=== PATIENT | female | born 1965 | race African-American/Black ===

== ENCOUNTER 2016-06-04 22:02 | Emergency (ER) | payer SELFPAY ==
[~2016-06-04] VITALS: Ht 162.6 cm; Wt 73.5 kg
[~2016-06-04 22:02] MED LIST: ALBI50PE SQ; BUPR75TA5 PO; DOXY100T PO; INSU100C SQ; L.AC1CAP6 PO; NAPR1TAB21 PO; ONDA8TAB12 PO; RAMI5CAP PO; [UNRECOGNIZED DRUG - OTHER] SQ
[2016-06-04 22:05] VITALS: BP 143/96
[2016-06-04] MEDS ORDERED: 0.9 % SODIUM CHLORIDE 10 ML DISP.SYRIN. IV PRN (22:45)
[2016-06-04] MEDS ORDERED: MORPHINE SULFATE 2 MG/ML DISP.SYRIN. IV/SQ PRN (22:45)
[2016-06-04] MEDS ORDERED: ASPIRIN 325 MG TABLET PO ONE (22:45)
--- NOTE | 2016-06-04 22:53 | PHYS DOC ---
General Chief Complaint: DIZZY/LIGHT HEADED Stated Complaint: DIZZY,PAIN IN LUNGS Time Seen by MD: 22:08 Source: patient Exam Limitations: no limitations Problems: History of Present Illness Initial Comments H and is a pleasant 50-year-old female with a history of hypertension, hyperlipidemia, diabetes with a significant smoking history presents with chest pain intermittent for last several days. This episode began at 6:30 tonight prior to arrival patient was noting increased shortness of breath with exertion and noted tightness across her chest worse with breathing in. She believes that this is her bronchitis as her chest pain waxes and wanes and will resolve she continues to smoke despite being encouraged to stop. She denies any recent travel she does have some chronic lower leg pain associated which with what she believes is osteoarthritis employed living by herself. She denies any localized swelling to the lower legs denies any control or history of pulmonary emboli and has no other risk factors for venous thrombosis Timing/Duration: 4-6 hours, changing over time, intermittent Severity/Quality: moderate Location: central Radiation: other (right left flanks) Activities at Onset: activity, other (pain may strike at rest as well and with movements.) Modifying Factors: No antacids, breathing coughingNo defecating, No eating, No exercise, No lying down, No morphine, movementNo nitroglycerin, No oxygen, No palpation, restNo other Nitro Today/Relief: no nitro taken today Aspirin Today: no aspirin today Associated Symptoms: abdominal pain, dizziness, fatigue, weakness Allergies: Coded Allergies: tramadol (Verified Allergy, Intermediate, RASH, NAUSEA/VOMITING, 02/05/15) Past Medical History Medical History: COPD, diabetes, high cholesterol, hypertension Surgical History: cholecystectomy, other ( 2, total abdominal hysterectomy) Social History Smoker: cigarettes, greater than 1 pack/day Alcohol: none Drugs: none Constitutional: weakness other EENTM: no symptoms reported (dizziness) Respiratory: cough shortness of breath SOB with exertion Cardiovascular: chest pain Gastrointestinal: abdomen distendeddenies nausea, denies poor appetite, denies poor fluid intake Genitourinary: no symptoms reported Musculoskeletal: muscle pain Skin: no symptoms reported Psychiatric/Neurological: no symptoms reported Endocrine: no symptoms reported Hematologic/Lymphatic: no symptoms reported All Other Systems: Reviewed and Negative Physical Exam General Appearance: mild distress HEENT: normal ENT inspection, pharynx normal (oropharynx dry) Neck: non-tender Respiratory: chest non-tender, no accessory muscle use, decreased breath sounds Cardiovascular: normal peripheral pulses, regular rate, rhythm, no edema, no gallop, no JVD, no murmur Peripheral Pulses: 2+ carotid (R), 2+ carotid (L) Gastrointestinal: normal bowel sounds, non tender, soft Extremities: normal range of motion, normal inspection, no calf tenderness, normal capillary refill Neurologic/Psychiatric: normal mood/affect, oriented x 3 Skin: normal color Lymphatic: no adenopathy Orders, Labs, [facility] Laboratory Tests 06/04/16 22:13: Glucose (Fingerstick) 353 06/04/16 23:30: White Blood Count 10.2, Red Blood Count 4.72, Hemoglobin 14.2, Hematocrit 42.0, Mean Corpuscular Volume 89, Mean Corpuscular Hemoglobin 30, Mean Corpuscular Hemoglobin Concent 34, Red Cell Distribution Width 13.9, Platelet Count 254, Neutrophils (%) (Auto) 52, Lymphocytes (%) (Auto) 39, Monocytes (%) (Auto) 6, Eosinophils (%) (Auto) 2, Basophils (%) (Auto) 1, Neutrophils # (Auto) 5.3, Lymphocytes # (Auto) 3.9, Monocytes # (Auto) 0.6, Eosinophils # (Auto) 0.2, Basophils # (Auto) 0.1, D-Dimer (Leigh) 0.48, Sodium Level 138, Potassium Level 3.6, Chloride Level 102, Carbon Dioxide Level 27, Anion Gap 9, Blood Urea Nitrogen 12, Creatinine 1.1, Estimated GFR (Cockcroft-Gault) 63.6, BUN/ Creatinine Ratio 11, Glucose Level 319, Calcium Level 8.9, Magnesium Level 2.0, Total Bilirubin 0.3, Aspartate Amino Transf (AST/SGOT) 10, Alanine Aminotransferase (ALT/SGPT) 22, Alkaline Phosphatase 67, Creatine Kinase 160, Creatine Kinase MB (Mass) 0.5, Creatine Kinase MB Relative Index 0.3, Troponin I Quantitative < 0.017, Total Protein 7.4, Albumin 3.4, Albumin/Globulin Ratio 0.9, Lipase 208 Vital Sign - Last 24 Hours 06/04/16 22:05 Temp 98.2 Pulse 92 Resp 20 Pulse Ox 98 O2 Delivery Room Air Patient presents with a concerning history of shortness of breath and chest pain with radiation to the flanks that she's never had quite like this before. She is a diabetic poorly controlled hypertension she still smokes she lives by herself and she is in a state of debility given her body habitus. It is concerning that she might have a cardiac cause of her chest discomfort along with possible co-diagnoses of bronchitis versus COPD exacerbation. At this point I will order EKG, chest x-ray, appropriate cardiac workup here in her heart score is presently is at a 4 which put her moderate risk. She has no PE risk factors other than mild immobility secondary to decreased activity. I will complete a d-dimer at this time. She does not meet perc given her age. Patient' s first reexamination at approximately 11:00 PM patient is feeling markedly better with medications is resting comfortable waiting for laboratory work. We discussed possible need for admission or CT imaging of the chest of her d-dimer came back positive she is low risk for PE but a positive d-dimer would require me to do more definitive evaluation. The patient is admittedly reluctant to be admitted to the hospital secondary to cost. EKG timed 11:35 PM demonstrates normal sinus rhythm with a heart rate of 93 no T wave inversions or ST elevation consistent with acute coronary event. Patient has an otherwise normal EKG. Normal limits. [place] is normal Chest x-ray reviewed by me time. [id number] 04, 2016 demonstrates hyperinflated lungs with no evidence of acute infiltrate cardiac shadow is within normal limits no pleural effusions noted no pneumothorax noted no significant bony abnormalities noted on exam.Since [id number] co-soap given her normal anion gap and her CMP within normal limits. Troponin is negative, d-dimer is negative below 0.5 patient is now symptom-free on secondary examination at approximately 1204. She now discussed outpatient evaluation for cardiology. She is not happy with her primary care doctor side given her referral list which will help her establish a new relationship with a new doctor. Her blood pressure is elevated but not requiring IV intervention. It is chronic in nature. Her chemistries again are within normal limits with the exception of a [id number] glucose which is elevated below 350 she does not know should any signs of DKA or significant hypoglycemia requiring IV therapy. His point patient will be treated as a bronchitis with pleurisy given a course of anti-inflammatories, Lortab and azithromycin. There is no clear evidence of acute coronary injury today but this is not mean she does not have heart disease. Given her risk factors I would advise her to get very close follow-up and exercise treadmill or stress test at her earliest convenience within the next week or 2. She's been given precautions and asked to return for any new symptoms increasing symptoms or questions or concerns. PATRICIA MONTES MD Jun 04, 2016 22:53
--- NOTE | 2016-06-04 23:36 | EKG ---
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
[2016-06-04 23:43] LABS: BASO # 0.1 x10^3/uL (0.0-0.2); BASO % 1 % (0-3); EOS # 0.2 x10^3/uL (0.0-0.7); EOS % 2 % (0-3); HEMOGLOBIN 14.2 g/dL (12.0-15.5); LYMPH # 3.9 x10^3/uL (1.0-4.8); LYMPH % 39 % (24-48); MEAN CORPUSCULAR HEMOGLOBIN 30 pg (25-35); MEAN CORPUSCULAR HGB CONC 34 g/dL (31-37); MEAN CORPUSCULAR VOLUME 89 fL (79-100); MONO # 0.6 x10^3/uL (0.0-1.1); MONO % 6 % (0-9); NEUT # 5.3 x10^3uL (1.8-7.7); NEUT % 52 % (31-73); PLATELET COUNT 254 x10^3/uL (140-400); RED BLOOD COUNT 4.72 x10^6/uL (3.50-5.40); RED CELL DISTRIBUTION WIDTH 13.9 % (11.5-14.5); WHITE BLOOD COUNT 10.2 x10^3/uL (4.0-11.0)
[2016-06-05 00:05] LABS: ALBUMIN 3.4 g/dL (3.4-5.0); ALBUMIN/GLOBULIN RATIO 0.9 (1.0-1.7); CALCIUM 8.9 mg/dL (8.5-10.1); CREATININE 1.1 mg/dL (0.6-1.0); GFR 63.6; POTASSIUM 3.6 mmol/L (3.5-5.1); TOTAL BILIRUBIN 0.3 mg/dL (0.2-1.0); TOTAL PROTEIN 7.4 g/dL (6.4-8.2)
--- NOTE | 2016-06-05 07:15 | RAD ---
Exam: PA and lateral chest radiograph History: Midsternal chest pain x3 days. Comparison: 11/17/2015. Findings: Cardiomediastinal silhouette is within normal limits for size. Bilateral lung brock are free of focal infiltrate. No pleural effusion is seen. Impression: No acute cardiopulmonary process.
== END 2016-06-05 00:30 | disposition home or self-care (01) ==
LOC: ER 22:02
DX: J40 Bronchitis, not specified as acute or chronic (principal); R09.1 Pleurisy; G89.29 Other chronic pain; E11.9 Type 2 diabetes mellitus without complications; E78.00 Pure hypercholesterolemia, unspecified; F17.210 Nicotine dependence, cigarettes, uncomplicated; I10 Essential (primary) hypertension; J44.9 Chronic obstructive pulmonary disease, unspecified; Z88.6 Allergy status to analgesic agent
CPT/HCPCS: 36415; 71020; 80053; 82553; 82947; 83690; 83735; 84484; 85027; 85379; 93005; 96374; 99285; J2270

== ENCOUNTER 2016-06-11 20:07 | Emergency (ER) | payer SELFPAY ==
[~2016-06-11] VITALS: Ht 162.6 cm; Wt 73.5 kg
[2016-06-11] MEDS ORDERED: IV NORMAL SALINE 1,000ML 1,000 ML IV SCH (20:19)
[2016-06-11] MEDS ORDERED: ASPIRIN 81 MG TAB.CHEW PO ONE (20:45)
[2016-06-11 21:26] LABS: BASO % 0 % (0-3); EOS # 0.2 x10^3/uL (0.0-0.7); EOS % 2 % (0-3); HEMATOCRIT 47.1 % (36.0-47.0); HEMOGLOBIN 15.8 g/dL (12.0-15.5); LYMPH # 4.1 x10^3/uL (1.0-4.8); LYMPH % 40 % (24-48); MEAN CORPUSCULAR HEMOGLOBIN 30 pg (25-35); MEAN CORPUSCULAR HGB CONC 34 g/dL (31-37); MEAN CORPUSCULAR VOLUME 90 fL (79-100); MONO # 0.5 x10^3/uL (0.0-1.1); MONO % 5 % (0-9); NEUT # 5.5 x10^3uL (1.8-7.7); NEUT % 53 % (31-73); PLATELET COUNT 245 x10^3/uL (140-400); RED BLOOD COUNT 5.22 x10^6/uL (3.50-5.40); RED CELL DISTRIBUTION WIDTH 14.2 % (11.5-14.5); WHITE BLOOD COUNT 10.3 x10^3/uL (4.0-11.0)
[2016-06-11 21:43] LABS: AMPHETAMINE/METHAMPHETAMINE NEG (NEG); BARBITURATES NEG (NEG); BENZODIAZEPINES NEG (NEG); CANNABINOIDS NEG (NEG); COCAINE NEG (NEG); METHADONE NEG (NEG); OPIATES NEG (NEG); PHENCYCLIDINE NEG (NEG)
[2016-06-11 21:46] LABS: BILIRUBIN,URINE NEG (NEG); CLARITY,URINE CLEAR; COLOR,URINE YELLOW; GLUCOSE,URINE 500 mg/dL (NEG); NITRITE,URINE NEG (NEG); UROBILINOGEN,URINE 0.2 mg/dL (0.2 mg/dL)
[2016-06-11 21:47] LABS: BACTERIA,URINE FEW /HPF (0-FEW); RBC,URINE 0 /HPF (0-2); SQUAMOUS EPITHELIAL CELL,UR OCC /LPF; WBC,URINE OCC /HPF (0-4)
[2016-06-11 21:51] LABS: ALBUMIN 4.1 g/dL (3.4-5.0); ALBUMIN/GLOBULIN RATIO 0.8 (1.0-1.7); ALK PHOS 82 U/L (46-116); ALT (SGPT) 28 U/L (14-59); ANION GAP 12 (6-14); AST (SGOT) 14 U/L (15-37); BLOOD UREA NITROGEN 10 mg/dL (7-20); BUN/CREATININE RATIO 13 (6-20); CALCIUM 9.9 mg/dL (8.5-10.1); CARBON DIOXIDE 28 mmol/L (21-32); CHLORIDE 98 mmol/L (98-107); CREATINE KINASE 171 U/L (26-192); CREATININE 0.8 mg/dL (0.6-1.0); GFR 91.9; GLUCOSE 269 mg/dL (70-99); LIPASE 169 U/L (73-393); MAGNESIUM 2.1 mg/dL (1.8-2.4); POTASSIUM 3.1 mmol/L (3.5-5.1); SODIUM 138 mmol/L (136-145); TOTAL BILIRUBIN 0.5 mg/dL (0.2-1.0)
--- NOTE | 2016-06-11 22:30 | PHYS DOC ---
General Chief Complaint: HYPERGLYCEMIA Stated Complaint: SUGAR HIGH,BODY ACHES Time Seen by MD: 20:10 Source: patient, old records Exam Limitations: no limitations Problems: History of Present Illness Initial Comments Pt is 50/F to ED c/o above complaints x 1 day. States she awoke this morning with a mild global CLAY no neurodeficits, she's felt fatigued and drained all day. She's had some mild abdominal discomfort, states she has chronic diarrhea no n/v no blood in stools. States it feels hard to take a deep breath, but denies cp/sob/palpitations/toscano. Timing/Duration: other (all day) Severity: moderate Modifying Factors: worse with movement, improves with rest Associated Symptoms: headaches, malaise, weakness Allergies: Coded Allergies: tramadol (Verified Allergy, Intermediate, RASH, NAUSEA/VOMITING, 02/05/15) Past Medical History Medical History: COPD, diabetes, high cholesterol, hypertension, other Surgical History: cholecystectomy, other (CS x 2, [facility]) Social History Smoker: less than 1 pack/day Alcohol: none Drugs: none Review of Systems Constitutional: denies chills, denies diaphoresis, denies fever, malaise weakness Respiratory: denies cough, denies shortness of breath, denies wheezing Cardiovascular: denies chest pain, denies palpitations, denies syncope Gastrointestinal: abdominal paindenies constipation, diarrheadenies nausea, denies vomiting Genitourinary: denies frequency, denies hematuria Musculoskeletal: see HPI Psychiatric/Neurological: see HPIdenies paresthesia, denies seizure, denies weakness Physical Exam General Appearance: WD/WN, no apparent distress Eyes: bilateral eye EOMI, bilateral eye PERRL, bilateral eye normal inspection Ear, Nose, Throat: hearing grossly normal, normal ENT inspection, normal pharynx Neck: non-tender, supple Respiratory: normal breath sounds, no respiratory distress Cardiovascular: normal peripheral pulses, regular rate, rhythm Gastrointestinal: normal bowel sounds, non tender, soft Back: no CVA tenderness, no vertebral tenderness Extremities: non-tender, normal inspection Neurologic/Psychiatric: residential treatment staff II-XII nml as tested, no motor/sensory deficits, alert, normal mood/affect, oriented x 3 Skin: normal color, warm/dry Orders, Labs, Meds EKG: NSR 89 bpm, no STEMI or definitive acute ischemic changes PCXR: no acute cardiopulmonary process, interpreted by me. d-dimer 0.53, K+ 3.1, glu 269, Trop I < 0.017, UA 500 glu Klor con given in ED. I discussed d-dimer as screen, pt has no s/s PE and pt is in agreement no CTA evaluation. Discussed K+ replacement and recheck with her doctor, she expressed agreement/understanding of treatment plan. Departure Time of Disposition: 22:23 Disposition: 01 HOME, SELF-CARE Diagnosis: hypokalemia, DM uncontrolled Condition: GOOD Patient Instructions: Diabetes and Standards of Medical Care, Hypokalemia-Brief Additional Instructions: Rest, no strenuous activity. Aggressive hydration with gatorade, water. Increase dietary potassium: leafy green vegetables, yogurt, potatoes, bananas. Rx: klor-con 20meq #12 Continue current medications. Follow up with your doctor Thursday for recheck of symptoms and serum potassium. Return to ED with new or changing symptoms. AHMET AZEVEDO DO June 11, 2016 22:30
[2016-06-11 22:40] VITALS: BP 148/92
[2016-06-11] MEDS ORDERED: POTASSIUM CHLORIDE 20 MEQ TABLET.ER. PO ONE (22:45)
--- NOTE | 2016-06-11 23:16 | EKG ---
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
--- NOTE | 2016-06-12 08:09 | RAD ---
Portable chest, 06/11/2016: History: Chest pain, shortness of breath Comparison is made to a study from 06/04/2016. The heart is at the upper limits of normal in size. The pulmonary vascularity is normal. No pulmonary infiltrates are seen. There is no evidence of pleural fluid. Moderate spurring is present in the spine. IMPRESSION: 1. Borderline cardiomegaly. 2. No acute abnormality is detected.
== END 2016-06-11 22:40 | disposition home or self-care (01) ==
LOC: ER 20:07
DX: E87.6 Hypokalemia (principal); E11.9 Type 2 diabetes mellitus without complications; K52.9 Noninfective gastroenteritis and colitis, unspecified; R51 Headache; F17.210 Nicotine dependence, cigarettes, uncomplicated; J44.9 Chronic obstructive pulmonary disease, unspecified; E78.00 Pure hypercholesterolemia, unspecified; I10 Essential (primary) hypertension; Z90.49 Acquired absence of other specified parts of digestive tract; Z88.5 Allergy status to narcotic agent
CPT/HCPCS: 36415; 71010; 80053; 80305; 80320; 81001; 82553; 82947; 83690; 83735; 83880; 84484; 85027; 85379; 85610; 85730; 93005; G0481; 99285-25; J7030

== ENCOUNTER 2016-06-17 05:51 | Observation (INO) | payer SELFPAY ==
[~2016-06-17] VITALS: Ht 162.6 cm; Wt 69.5 kg
[2016-06-17 06:25] LABS: BASO # 0.1 x10^3/uL (0.0-0.2); BASO % 1 % (0-3); EOS # 0.2 x10^3/uL (0.0-0.7); EOS % 3 % (0-3); HEMATOCRIT 40.1 % (36.0-47.0); HEMOGLOBIN 13.5 g/dL (12.0-15.5); LYMPH # 4.4 x10^3/uL (1.0-4.8); LYMPH % 46 % (24-48); MEAN CORPUSCULAR HEMOGLOBIN 30 pg (25-35); MEAN CORPUSCULAR HGB CONC 34 g/dL (31-37); MEAN CORPUSCULAR VOLUME 89 fL (79-100); MONO # 0.7 x10^3/uL (0.0-1.1); MONO % 7 % (0-9); NEUT # 4.3 x10^3uL (1.8-7.7); NEUT % 44 % (31-73); PLATELET COUNT 237 x10^3/uL (140-400); RED BLOOD COUNT 4.51 x10^6/uL (3.50-5.40); RED CELL DISTRIBUTION WIDTH 13.8 % (11.5-14.5); WHITE BLOOD COUNT 9.7 x10^3/uL (4.0-11.0)
[2016-06-17] MEDS ORDERED: IV NORMAL SALINE 1,000ML 1,000 ML IV SCH (06:30)
[2016-06-17 06:37] LABS: PREG TEST PT QUAL NEGATIVE (NEG)
[2016-06-17 06:46] LABS: ALBUMIN 3.1 g/dL (3.4-5.0); CALCIUM 8.6 mg/dL (8.5-10.1); CREATININE 0.8 mg/dL (0.6-1.0); DIRECT BILIRUBIN 0.1 mg/dL (0.0-0.2); GFR 91.9; POTASSIUM 3.6 mmol/L (3.5-5.1); TOTAL BILIRUBIN 0.4 mg/dL (0.2-1.0)
--- NOTE | 2016-06-17 06:50 | PHYS DOC ---
Past History Past Medical History: COPD, Diabetes, High Cholesterol, Hypertension, UTI, Other Past Surgical History: Cholecystectomy, , Hysterectomy, Tonsillectomy Alcohol Use: None Drug Use: None Adult General Chief Complaint Chief Complaint: CHEST PAIN HPI HPI 50-year-old female presenting to the emergency department today with chest pain. She describes it as sharp pain worse with deep inspiration. It started at 9 PM yesterday. It is intermittent and not associated with nausea vomiting or diaphoresis. She has a history of high blood pressure diabetes she has a smoking history. She reports a family history of heart disease. She also reports having high cholesterol. She reports a family history of blood clotting disorders but denies a personal history of blood clots. She denies recent immobilization or recent surgery hemoptysis or unilateral leg swelling. The pain was not sudden in onset. She denies it being a ripping or tearing pain. It does not radiate to the back. It does however radiate to her left shoulder. She denies numbness weakness or tingling. Review of systems is negative for abdominal pain nausea vomiting fevers or chills. All other review of systems is negative unless otherwise noted in history of present illness. Review of Systems Review of Systems SEE ABOVE. Current Medications Current Medications Current Medications Medications (Trade) Dose Ordered Sig/Deysi Start Time Stop Time Status Last Admin Dose Admin Sodium Chloride 1,000 ml @ 1,000 mls/hr Q1H 06/17/16 06:30 06/17/16 07:29 06/17/16 06:30 1,000 MLS/HR Allergies Allergies Allergies Coded Allergies Type Severity Reaction Last Updated Verified tramadol Allergy Intermediate RASH, NAUSEA/VOMITING 02/05/15 Yes Physical Exam Physical Exam Constitutional: Well developed, well nourished, no acute distress, non-toxic appearance. HENT: Normocephalic, atraumatic, bilateral external ears normal, oropharynx moist, no oral exudates, nose normal. [] Eyes: PERRLA, EOMI, conjunctiva normal, no discharge. Neck: Normal range of motion, no tenderness, supple, no stridor. [] Cardiovascular:Heart rate regular rhythm, no murmur [] Lungs & Thorax: Bilateral breath sounds clear to auscultation Abdomen: Bowel sounds normal, soft, no tenderness, no masses, no pulsatile masses. [] Skin: Warm, dry, no erythema, no rash. [] Back: No tenderness, no CVA tenderness. Extremities: No tenderness, no cyanosis, no clubbing, ROM intact, no edema. Neurologic: Alert and oriented X 3, normal motor function, normal sensory function, no focal deficits noted. [] Psychologic: Affect normal, judgement normal, mood normal. [] Current Patient Data Lab Results Laboratory Tests Test 06/17/16 06:00 White Blood Count 9.7 x10^3/uL (4.0-11.0) Red Blood Count 4.51 x10^6/uL (3.50-5.40) Hemoglobin 13.5 g/dL (12.0-15.5) Hematocrit 40.1 % (36.0-47.0) Mean Corpuscular Volume 89 fL (79-100) Mean Corpuscular Hemoglobin 30 pg (25-35) Mean Corpuscular Hemoglobin Concent 34 g/dL (31-37) Red Cell Distribution Width 13.8 % (11.5-14.5) Platelet Count 237 x10^3/uL (140-400) Neutrophils (%) (Auto) 44 % (31-73) Lymphocytes (%) (Auto) 46 % (24-48) Monocytes (%) (Auto) 7 % (0-9) Eosinophils (%) (Auto) 3 % (0-3) Basophils (%) (Auto) 1 % (0-3) Neutrophils # (Auto) 4.3 x10^3uL (1.8-7.7) Lymphocytes # (Auto) 4.4 x10^3/uL (1.0-4.8) Monocytes # (Auto) 0.7 x10^3/uL (0.0-1.1) Eosinophils # (Auto) 0.2 x10^3/uL (0.0-0.7) Basophils # (Auto) 0.1 x10^3/uL (0.0-0.2) Serum Test, Qualitative Negative (NEG) EKG EKG [] EKG shows sinus rhythm with a regular rhythm. [place] is mildly leftward. ST segments are congruent. Not suggestive of ischemia or ACS. Radiology/Procedures Radiology/Procedures [] Course & Med Decision Making Course & Med Decision Making Pertinent Labs and Imaging studies reviewed. (See chart for details) [] 50-year-old female presenting to the emergency department with chest pain. Vital signs show that the patient was normal oxygen saturation and not tachycardic in our emergency department. EKG unremarkable and not suggestive of ACS. Chest x-ray obtained. Blood work obtained. CT angiography of the chest obtained. Troponin negative. The patient's potassium was at the lower end of normal range she was supplemented a small dose of oral potassium in the emergency department. The patient was then admitted to our hospital for further evaluation workup and care. Cardiology consultation placed. HEART SCORE OF 4. ANNIKA OF 2-3. Dragon Disclaimer Dragon Disclaimer This chart was dictated in whole or in part using Voice Recognition software in a busy, high-work load, and often noisy Emergency Department environment. It may contain unintended and wholly unrecognized errors or omissions. Departure Departure: Impression: Primary Impression: Chest pain Additional Impressions: Diabetes mellitus Hypertension Family history of heart disease Family history of blood clots Disposition: ADMITTED INPATIENT Admitting Physician: Sesar Downey Condition: STABLE Referrals: SEAN POWELL DO (PCP) Problem Qualifiers Primary Impression: Chest pain Chest pain type: unspecified Qualified Codes: R07.9 - Chest pain, unspecified ML GONZALES MD June 17, 2016 06:50
[2016-06-17 06:54] LABS: BACTERIA,URINE 0 /HPF (0-FEW); BILIRUBIN,URINE NEG (NEG); CLARITY,URINE CLEAR; COLOR,URINE YELLOW; GLUCOSE,URINE >=1000 mg/dL (NEG); NITRITE,URINE NEG (NEG); RBC,URINE OCC /HPF (0-2); SQUAMOUS EPITHELIAL CELL,UR OCC /LPF; UROBILINOGEN,URINE 4 mg/dL (0.2 mg/dL); WBC,URINE 0 /HPF (0-4)
[2016-06-17] MEDS ORDERED: IOHEXOL 300 MG/ML 75 ML VIAL. ONE (06:54)
--- NOTE | 2016-06-17 06:58 | RAD ---
Indication: Chest pain and shortness of air. Time of exam 0627 hours. Correlation is made with prior chest from 06/11/2016. The heart is mildly enlarged. The lungs are clear. The pulmonary vascularity is normal. No infiltrate, effusion or pneumothorax is identified. Impression: No acute cardiopulmonary process is detected.
[2016-06-17] MEDS ORDERED: CONTRAST GIVEN MC PRN (07:00)
[2016-06-17] MEDS ORDERED: NITROGLYCERIN SUBLINGUAL 0.4 MG BOTTLE OF 25. SL PRN (07:00)
[2016-06-17] MEDS ORDERED: ONDANSETRON PF 4 MG/2 ML VIAL. IV PRN (07:00)
[2016-06-17 07:02] LABS: AMPHETAMINE/METHAMPHETAMINE NEG (NEG); BARBITURATES NEG (NEG); BENZODIAZEPINES NEG (NEG); CANNABINOIDS NEG (NEG); COCAINE NEG (NEG); METHADONE NEG (NEG); OPIATES NEG (NEG); PHENCYCLIDINE NEG (NEG)
[2016-06-17] MEDS ORDERED: IOHEXOL 300 MG/ML 75 ML VIAL. IV ONE (07:15)
[2016-06-17] MEDS ORDERED: POTASSIUM CHLORIDE 20 MEQ TABLET.ER. PO ONE (07:30)
--- NOTE | 2016-06-17 07:34 | ACF ---
Admission Criteria Forms Admission Criteria Met?: No EBONIE SHARMA June 17, 2016 07:34 ML GONZALES MD June 22, 2016 18:28
--- NOTE | 2016-06-17 07:35 | RAD ---
Indication: Chest pain for one week and shortness of air. Axial imaging through the chest was performed after the administration of intravenous contrast and utilizing the CT angiography protocol. Multiplanar, 3-D and MIP reformations were also performed. Comparison is made with prior chest from 10/03/2014. Evaluation of the pulmonary arterial system is without evidence of thromboembolism. No filling defects are identified. The thoracic aorta is normal caliber. No dissection is seen. No pericardial or pleural fluid is identified. Parenchymal evaluation demonstrates minimal patchy groundglass opacities within the left upper lobe. There is dependent atelectasis in the lung bases. Upper abdomen is unremarkable apart from a probable cyst within the right lobe of the liver. Impression: 1. No evidence of pulmonary embolism or thoracic aortic dissection. Minimal nonspecific groundglass opacities left upper lobe are seen. Study is otherwise unremarkable. PQRS Compliance Statement: One or more of the following individualized dose reduction techniques were utilized for this examination: 1. Automated exposure control 2. Adjustment of the mA and/or kV according to patient size 3. Use of iterative reconstruction technique
[2016-06-17 08:26] VITALS: BP 130/72
--- NOTE | 2016-06-17 08:38 | PDOC2 ---
FABIANA MCGRAW PROFESSOR OF PHILOSOPHY 06/17/16 0838: CONSULT Date of Admission DATE: 06/17/16 TIME: 08:37 Reason for Consult: cp Problem List Problems Medical Problems: (1) Chest pain Status: Acute (2) Diabetes mellitus Status: Acute (3) Hypertension Status: Acute History of Present Illness Ms Feliciano is a 50 year old female with history of diabetes mellitus, hypertension and hyperlipidemia, who presents with complaints of chest pain. She reports pain starting about 9 pm last night. She took aspirin and tried to sleep off the discomfort and when that did not work, presented to the ED this am. She describes a sharp pain in her mid sternal area, worse with deep inspiration, movement of her upper body and eating. She reports associated dyspnea since last night as well. The pain has been constant since last night with "a little" improvement after nitro. She denies palpitations, lightheadedness or syncope. She denies congestive symptoms. She reports a functional capacity of about 3 blocks before needing to rest. Cardiovascular: HTN, hyperipidemia GI: GERD, Peptic Ulcer disease Endocrine: Diabetes, Hypothyroidism Past Surgical History: Cholecystectomy, , Hysterectomy, Tonsillectomy Family History: Cancer, Coronary Artery Disease, Diabetes, Hypertension Social History 1/2 ppd smoker, she denies any illicit drug use or significant ETOH Current Medications Current Medications Sodium Chloride 1,000 ml @ 1,000 mls/hr Q1H IV Last administered on 06/17/16 06:30; Start 06/17/16 at 06:30; Stop 06/17/16 at 07:29; Status DC Iohexol (Omnipaque 300 Mg/ml) 75 ml 1X ONCE IV Last administered on 06/17/16 07:03; Start 06/17/16 at 07:15; Stop 06/17/16 at 07:16; Status DC Info (Do NOT chart on this entry -- for MONITORING) 1 each PRN DAILY PRN MC SEE COMMENTS; Start 06/17/16 at 07:00; Stop 06/19/16 at 06:59 Iohexol (Omnipaque 300 Mg/ml) 75 ml STK-MED ONCE .ROUTE ; Start 06/17/16 at 06:54 ; Stop 06/17/16 at 06:55; Status DC Potassium Chloride (Klor-Con) 20 meq 1X ONCE PO Last administered on 06/17/16 07:50; Start 06/17/16 at 07:30; Stop 06/17/16 at 07:31; Status DC Ondansetron HCl (Zofran) 4 mg PRN Q4HRS PRN IV NAUSEA/VOMITING Last administered on 06/17/16 07:50; Start 06/17/16 at 07:00; Stop 06/18/16 at 06:59 Nitroglycerin (Nitrostat) 0.4 mg PRN Q5MIN PRN SL CHEST PAIN Last administered on 06/17/16 07:45; Start 06/17/16 at 07:00; Stop 06/18/16 at 06:59 Active Scripts Active Doxycycline Hyclate 100 Mg Tablet 1 Tab PO BID Zofran Odt (Ondansetron) 8 Mg Tab.rapdis 8 Mg PO QIDPRN PRN Reported Wellbutrin (Bupropion Hcl) 75 Mg Tablet 1 Tab PO DAILYWBKFT Probiotic (L.acidoph & Paracasei,B.lactis) 1 Each Capsule 1 Each PO Ramipril 5 Mg Capsule 1 Cap PO DAILY [tjo] 25 Unit SQ TIDAC Humalog (Insulin Lispro) 100 Unit/1 Ml Cartridge 30 Unit SQ TIDAC Tanzeum (Albiglutide) 50 Mg/0.5 Ml Pen.injctr 50 Mg SQ WEEKLY Allergies: Coded Allergies: tramadol (Verified Allergy, Intermediate, RASH, NAUSEA/VOMITING, 02/05/15) General: YES: Fatigue, Malaise Respiratory: YES: Shortness of breath Cardiovascular: yes: Chest Pain Musculoskeletal: YES: Pain In: (feet and legs) General: Alert, Oriented X3, Cooperative, No acute distress HEENT: Atraumatic, EOMI Lungs: Other (decreased bases bilaterally) Heart: Regular rate, Normal S1, Normal S2, Other (no obvious murmurs, no gallops, clicks or rubs) Abdomen: Normal bowel sounds, Soft Extremities: No cyanosis, No edema, Normal pulses Neuro: Normal speech Psych/Mental Status: Mental status NL, Mood NL VITALS Vital Signs Date Time Temp Pulse Resp B/P (MAP) Pulse Ox O2 Delivery O2 Flow Rate FiO2 06/17/16 08:26 98.1 70 20 130/72 (91) 98 Room Air Labs Laboratory Tests Test 06/17/16 06:00 06/17/16 06:40 White Blood Count 9.7 x10^3/uL (4.0-11.0) Red Blood Count 4.51 x10^6/uL (3.50-5.40) Hemoglobin 13.5 g/dL (12.0-15.5) Hematocrit 40.1 % (36.0-47.0) Mean Corpuscular Volume 89 fL (79-100) Mean Corpuscular Hemoglobin 30 pg (25-35) Mean Corpuscular Hemoglobin Concent 34 g/dL (31-37) Red Cell Distribution Width 13.8 % (11.5-14.5) Platelet Count 237 x10^3/uL (140-400) Neutrophils (%) (Auto) 44 % (31-73) Lymphocytes (%) (Auto) 46 % (24-48) Monocytes (%) (Auto) 7 % (0-9) Eosinophils (%) (Auto) 3 % (0-3) Basophils (%) (Auto) 1 % (0-3) Neutrophils # (Auto) 4.3 x10^3uL (1.8-7.7) Lymphocytes # (Auto) 4.4 x10^3/uL (1.0-4.8) Monocytes # (Auto) 0.7 x10^3/uL (0.0-1.1) Eosinophils # (Auto) 0.2 x10^3/uL (0.0-0.7) Basophils # (Auto) 0.1 x10^3/uL (0.0-0.2) D-Dimer (Leigh) 0.51 mg/L (0.00-0.50) Sodium Level 139 mmol/L (136-145) Potassium Level 3.6 mmol/L (3.5-5.1) Chloride Level 103 mmol/L (98-107) Carbon Dioxide Level 29 mmol/L (21-32) Anion Gap 7 (6-14) Blood Urea Nitrogen 13 mg/dL (7-20) Creatinine 0.8 mg/dL (0.6-1.0) Estimated GFR (Cockcroft-Gault) 91.9 Glucose Level 264 mg/dL (70-99) Calcium Level 8.6 mg/dL (8.5-10.1) Total Bilirubin 0.4 mg/dL (0.2-1.0) Direct Bilirubin 0.1 mg/dL (0.0-0.2) Aspartate Amino Transf (AST/SGOT) 14 U/L (15-37) Alanine Aminotransferase (ALT/SGPT) 25 U/L (14-59) Alkaline Phosphatase 63 U/L (46-116) Troponin I Quantitative < 0.017 ng/mL (0-0.055) Total Protein 7.0 g/dL (6.4-8.2) Albumin 3.1 g/dL (3.4-5.0) Lipase 171 U/L (73-393) Serum Test, Qualitative Negative (NEG) Urine Collection Type U cath Urine Color Yellow Urine Clarity Clear Urine pH 6.5 Urine Specific [place] 1.020 Urine Protein Trace (NEG-TRACE) Urine Glucose (UA) >=1000 mg/dL (NEG) Urine Ketones (Stick) Neg mg/dL (NEG) Urine Blood Neg (NEG) Urine Nitrite Neg (NEG) Urine Bilirubin Neg (NEG) Urine Urobilinogen Dipstick 4 mg/dL (0.2 mg/dL) Urine Leukocyte Esterase Neg (NEG) Urine RBC Occ /HPF (0-2) Urine WBC 0 /HPF (0-4) Urine Squamous Epithelial Cells Occ /LPF Urine Bacteria 0 /HPF (0-FEW) Urine Mucus Marked /LPF Urine Opiates Screen Neg (NEG) Urine Methadone Screen Neg (NEG) Urine Barbiturates Neg (NEG) Urine Phencyclidine Screen Neg (NEG) Urine Amphetamine/Methamphetamine Neg (NEG) Urine Benzodiazepines Screen Neg (NEG) Urine Cocaine Screen Neg (NEG) Urine Cannabinoids Screen Neg (NEG) Urine Ethyl Alcohol Neg (NEG) Images CXR - Impression: No acute cardiopulmonary process is detected. CT - Impression: 1. No evidence of pulmonary embolism or thoracic aortic dissection. Minimal nonspecific groundglass opacities left upper lobe are seen. Study is otherwise unremarkable. Assessment/Plan 1. chest pain, atypical - initial set of enzymes negative. EKG without acute ischemic changes. Less likely cardiac, however she has significant risk factors. Suggest monitor serial enzymes, check echocardiogram and MPI in am if they remain negative. 2. hypertension - controlled. 3. hyperlipidemia - check lipids 4. diabetes mellitus - poorly controlled 5. history of PUD - start PPI 6. family history of coronary artery disease Problems: OXANA TEMPLE MD 06/17/16 1342: CONSULT Allergies: Coded Allergies: tramadol (Verified Allergy, Intermediate, RASH, NAUSEA/VOMITING, 02/05/15) Assessment/Plan Patient seen and examined. Agree with SUSTAINABLE PRODUCTS MARKETING MANAGER's assessment and plan. CP atypical and most probably GI etiology [place] ruled out Check 2D echo to assess LV function and r/o wall motion abnormalities Due to her multiple CV risk factors, she will benefit from MPI to rule out ischemia - this could be done as outpatient Thank you for your consultation Problems: FABIANA MCGRAW APRN June 17, 2016 08:38 OXANA TEMPLE MD June 17, 2016 13:42
[2016-06-17] MEDS ORDERED: INSU300I SQ (08:56)
[2016-06-17] MEDS ORDERED: INSU100V SQ (08:59)
[2016-06-17] MEDS ORDERED: LURA40TA PO (08:59)
[2016-06-17] MEDS ORDERED: DULA1.5P SQ (09:00)
[2016-06-17] MEDS ORDERED: NEBI10TA3 PO (09:01)
[2016-06-17] MEDS ORDERED: DEXL60CA2 PO (09:01)
[2016-06-17] MEDS ORDERED: SUMA100T3 PO (09:01)
[2016-06-17] MEDS ORDERED: TOPI50TA38 PO (09:02)
[2016-06-17] MEDS ORDERED: OM-31CAP7 PO (09:06)
[2016-06-17] MEDS ORDERED: KETOROLAC 30 MG/ML VIAL. IV ONE (09:30)
[2016-06-17] MEDS: METOPROLOL TART IMMED RELEASE 25 MG TABLET PO SCH ×2 (09:36→21:07)
[2016-06-17 10:16] VITALS: BP 121/72
[2016-06-17] MEDS ORDERED: DEXTROSE 50% 25 GM / 50ML DISP.SYRIN. IV PRN (11:30)
[2016-06-17] MEDS: INSULIN ASPART 300 UNITS/3 ML INSULN.PEN SQ SCH ×3 (12:03→21:08)
[2016-06-17] MEDS: oxyCODONE IR 5 MG TABLET PO PRN ×2 (13:44→21:07)
[2016-06-17] MEDS ORDERED: MORPHINE SULFATE 4 MG/ML DISP.SYRIN. IV PRN (13:45)
--- NOTE | 2016-06-17 15:02 | CARD ---
APPROVED REPORT EXAM: Two-dimensional and M-mode echocardiogram with Doppler and color Doppler. Other Information Quality : GoodHR: 68bpm Rhythm : NSR INDICATION Chest Pain HTN RISK FACTORS Hypertension 2D DIMENSIONS RVDd2.9 (2.9-3.5cm)Left Atrium(2D)2.9 (1.6-4.0cm) IVSd1.1 (0.7-1.1cm)Aortic Root(2D)2.8 (2.0-3.7cm) LVDd4.3 (3.9-5.9cm)LVOT Diameter2.4 (1.8-2.4cm) PWd1.2 (0.7-1.1cm)LVDs2.9 (2.5-4.0cm) FS (%) 32.3 %SV49.4 ml LVEF(%)61.0 (>50%) Aortic Valve AoV Peak Raul.111.6cm/sAoV VTI27.9cm AO Peak GR.5.0mmHgLVOT Peak Raul.95.1cm/s LVOT VTI 22.38cmAO Mean GR.3mmHg HARESH (VMAX)3.62yp5TLK (VTI)3.75cm2 Mitral Valve MV E Dujajiot94.5cm/sMV E Peak Gr.2mmHg MV DECEL [id number] A Ukqaiefc73.0cm/s MV E Mean Gr.1mmHgE/A Ratio0.9 MV A [id number] Pulmonary Valve PV Peak Jwjvcpsv84.8cm/sPV Peak Grad.2mmHg Tricuspid Valve TR P. Vscjomad612vq/sTR Peak Gr.29mmHg Pulmonary Vein S1 Grladttw46.9cm/sD2 Hnejvvhx23.6cm/s LEFT VENTRICLE The left ventricle is normal size. There is borderline to mild concentric left ventricular hypertroph y. The left ventricular systolic function is normal and the ejection fraction is within normal range. The Ejection Fraction is 60-65%. There is normal LV segmental wall motion. The left ventricular ramachandran tolic function and filling is normal for age. RIGHT VENTRICLE The right ventricle is normal size. There is normal right ventricular wall thickness. The right ventr icular systolic function is normal. ATRIA The left atrium size is normal. The right atrium size is normal. The interatrial septum is intact wit h no evidence for an atrial septal defect or patent foramen ovale as noted on 2-D or Doppler imaging. AORTIC VALVE The aortic valve is trileaflet. Doppler and Color Flow revealed no significant aortic regurgitation. There is no significant aortic valvular stenosis. MITRAL VALVE The mitral valve is normal in structure and function. There is no evidence of mitral valve prolapse. There is no mitral valve stenosis. Doppler and Color Flow revealed no mitral valve regurgitation note d. TRICUSPID VALVE Doppler and Color Flow revealed mild tricuspid regurgitation. The pulmonary artery systolic pressure is estimated at 33 mmHg. PULMONIC VALVE Doppler and Color Flow revealed trace pulmonic valvular regurgitation. There is no pulmonic valvular stenosis. GREAT VESSELS The aortic root is normal in size. The ascending aorta is normal in size. The pulmonary artery is nor mal. The IVC is normal in size and collapses >50% with inspiration. PERICARDIAL EFFUSION There is no evidence of significant pericardial effusion. Critical Notification Critical Value: No <Conclusion> The left ventricular systolic function is normal and the ejection fraction is within normal range. Th e Ejection Fraction is 60-65%. There is normal LV segmental wall motion.
[2016-06-17 15:23] VITALS: BP 146/79
--- NOTE | 2016-06-17 15:28 | HP ---
ADMIT DATE: 06/17/2016 HISTORY OF PRESENT ILLNESS: This is a 50-year-old female patient with past medical history significant for hypertension, hyperlipidemia, diabetes who presented to the Emergency Room with a complaint of chest pain that started at 9 p.m. last night. She took aspirin and tried to sleep off to get comfort and when it did not work, she presented to the Emergency Room early this morning. She described her pain as sharp, mid sternal, worse with deep inspiration, attributed by movement and eating and have also associated with dyspnea since last night. The pain is constant with a little improvement after nitroglycerin. She denies any palpitations, lightheadedness or syncope. She denies any shortness of breath. She was evaluated in the Emergency Room and has had an EKG, which showed no acute ischemic changes. One set of cardiac enzyme was normal and she was evaluated by the Cardiology team with a plan to arrange for her to have an echocardiogram and a stress test. PAST MEDICAL HISTORY: Significant for hypertension, hyperlipidemia, gastroesophageal reflux disease, peptic ulcer disease, type 2 diabetes and hypothyroidism. PAST SURGICAL HISTORY: Significant for cholecystectomy, , hysterectomy, tonsillectomy. FAMILY HISTORY: Positive for cancer, coronary artery disease, diabetes, and hypertension. SOCIAL HISTORY: She smokes half a pack a day. She denied any alcohol or illicit drug use. ALLERGIES: She is allergic to TRAMADOL. MEDICATIONS: She is currently on following medications: She is on Dexilant 60 mg once a day, Trulicity 1.5 mg subcutaneously weekly. She is on Lantus insulin 40 units at bedtime, insulin lispro 25 units before meals, lurasidone for Latuda 60 mg at bedtime, Bystolic 10 mg once a day, Restora capsule once a day, sumatriptan succinate for Imitrex 100 mg as needed for migraine headache, topiramate 50 mg at bedtime. REVIEW OF SYSTEMS: The patient denied any blurring of vision, cataract, glaucoma or macular degeneration. Denied any earache, tinnitus or sensorineural deafness. Denied any nosebleeds, stuffy nose or postnasal drip. Denied any sore throat, sore tongue, toothache, hoarseness of voice or difficulty swallowing. Denied any nausea, vomiting, diarrhea or constipation. Denied any hematemesis, melena or hematochezia. Denied any dysuria, frequency or hematuria. She did complain of chest pain. Denied any cough, phlegm or hemoptysis. PHYSICAL EXAMINATION: GENERAL: When I examined her on arrival, she looked well and was clearly in no apparent respiratory distress. She was pale, but not jaundiced, cyanosed. No lymphadenopathy or thyromegaly. No jugular venous distention. No limb edema. VITAL SIGNS: Her heart rate was 78, blood pressure 133/80, temperature was 98.2, respiratory rate was 18 and oxygen saturation was 98%. HEAD, EYES, EARS, NOSE AND THROAT: Showed normocephalic, atraumatic. NECK: Supple. HEART: Showed normal first and second heart sounds with no gallop, rub or murmur. CHEST: Clear to auscultation. No crepitation or rhonchi. ABDOMEN: Distended, soft, nontender. No guarding or rigidity. No organomegaly. Hernial orifices intact. Bowel sounds normal. NEUROLOGIC: She was awake, alert, responding appropriately. Cranial nerves intact. EXTREMITIES: She moves extremities without difficulty. LABORATORY DATA: She has had lab work done while in the Emergency Room, which showed that her serum sodium of 139, potassium 3.6, chloride 103, bicarbonate 29, anion gap of 7, BUN 13, creatinine 0.8, estimated GFR was 92 mL per minute, her blood sugar was 264, calcium was 8.6. Total bilirubin, AST, ALT, alkaline phosphatase were normal. Her total protein was 7, albumin was 3.1, serum lipase 171. Quantitative serum test was negative. Her first troponin was less than 0.017. White cell count was 9700, hemoglobin 13.5, hematocrit 40, MCV 89 and platelet count 237,000. Her D-dimer was 0.51 mg/dL. Urinalysis was essentially unremarkable and urine toxicology was negative. She did have a chest x-ray, which was basically unremarkable. The heart is mildly enlarged. The lungs are clear. The pulmonary vascularity is normal. No infiltrates, effusions or pneumothorax identified. She did have a CT scan of the chest with PE protocol, which showed that it was negative for pulmonary embolism or thoracic aortic dissection. She has minimal nonspecific ground-glass opacities in the left upper lobe are seen, study otherwise unremarkable. PLAN: Obviously to do 2 more sets of cardiac enzyme. She has an echocardiogram ordered and will be scheduled for stress test hannalos alamitosrao. STACY SAUCEDO MD DR: HUNTER/jim JOB#: [id number] / [id number]
--- NOTE | 2016-06-17 15:32 | EKG ---
[address] [address] Test Date: 2016-06-17 Test Time: 05:59:00 Pat Name: BEL WILSON Department: Room: 115 A Gender: F Community Life Director: : 1965 Requested By: STACY SAUCEDO Order Number: [id number] Reading MD: Navid Ramos Measurements Intervals [place] Rate: 81 P: 41 ME: 148 QRS: 20 QRSD: 72 T: 36 QT: 394 QTc: 458 Interpretive Statements SINUS RHYTHM Electronically Signed On 06-23-2016 9:04:28 CDT by Navid Ramos
[2016-06-17 18:31] VITALS: BP 135/78
[2016-06-17] MEDS ORDERED: METOPROLOL TART IMMED RELEASE 25 MG TABLET PO SCH (21:00)
[2016-06-17 23:25] VITALS: BP 144/84
[2016-06-18] MEDS ORDERED: diphenhydrAMINE HCL 25 MG CAPSULE PO ONE (03:50)
[2016-06-18] MEDS ORDERED: ACETAMINOPHEN 325 MG TABLET PO ONE (03:50)
[2016-06-18 05:03] VITALS: BP 132/79
[2016-06-18] MEDS ORDERED: PANTOPRAZOLE 40 MG TABLET. PO SCH (07:30)
[2016-06-18] MEDS: oxyCODONE IR 5 MG TABLET PO PRN (07:39)
[2016-06-18] MEDS: INSULIN ASPART 300 UNITS/3 ML INSULN.PEN SQ SCH ×3 (07:44→17:10)
[2016-06-18] MEDS ORDERED: ASPIRIN ENTERIC COATED 81 MG TABLET.DR. PO SCH (08:00)
[2016-06-18] MEDS ORDERED: REGADENOSON 0.4 MG/5 ML DISP.SYRIN. IV ONE (08:30)
--- NOTE | 2016-06-18 10:58 | PDOC ---
PROGRESS NOTES Diagnosis Problem Problems Medical Problems: (1) Chest pain Status: Acute (2) Diabetes mellitus Status: Acute (3) Hypertension Status: Acute Assessment Problems Medical Problems: (1) Chest pain Status: Acute (2) Diabetes mellitus Status: Acute (3) Hypertension Status: Acute 1. chest pain, atypical - [place] ruled out. EKG without acute ischemic changes. Echo with normal LVEF and wall motion. MPI secondary to significant risk factors. If negative suggest GI eval. 2. hypertension - controlled. consider addition of low dose ACEI in light of her diabetes. 3. hyperlipidemia - low HDL, mildly elevated LDL. Diet control and exercise recommended. 4. diabetes mellitus - poorly controlled 5. history of PUD - PPI 6. family history of coronary artery disease Problems: Subjective no new complaints Objective Vital Signs Date Time Temp Pulse Resp B/P (MAP) Pulse Ox O2 Delivery O2 Flow Rate FiO2 06/18/16 07:55 Room Air 06/18/16 05:03 98.5 80 18 132/79 (96) 96 Intake and Output 06/18/16 07:00 Intake Total 1170 ml Balance 1170 ml Intake Oral 1170 ml # Voids 3 Abdomen: Normal bowel sounds, Soft, No tenderness Heart: Regular rate, Normal S1, Normal S2, No murmurs, Other (no gallops, clicks or rubs) Extremities: No cyanosis, No edema, Normal pulses General: Alert, Oriented X3, Cooperative, No acute distress HEENT: Atraumatic, EOMI, Mucous membr. moist/pink Lungs: Clear to auscultation, Normal air movement Neuro: Normal speech Psych/Mental Status: Mental status NL, Mood NL Review of Relevant I have reviewed the following items smiley (where applicable) has been applied. Labs Laboratory Tests Test 06/17/16 06:00 06/17/16 06:40 06/17/16 11:08 06/17/16 16:50 White Blood Count 9.7 x10^3/uL (4.0-11.0) Red Blood Count 4.51 x10^6/uL (3.50-5.40) Hemoglobin 13.5 g/dL (12.0-15.5) Hematocrit 40.1 % (36.0-47.0) Mean Corpuscular Volume 89 fL (79-100) Mean Corpuscular Hemoglobin 30 pg (25-35) Mean Corpuscular Hemoglobin Concent 34 g/dL (31-37) Red Cell Distribution Width 13.8 % (11.5-14.5) Platelet Count 237 x10^3/uL (140-400) Neutrophils (%) (Auto) 44 % (31-73) Lymphocytes (%) (Auto) 46 % (24-48) Monocytes (%) (Auto) 7 % (0-9) Eosinophils (%) (Auto) 3 % (0-3) Basophils (%) (Auto) 1 % (0-3) Neutrophils # (Auto) 4.3 x10^3uL (1.8-7.7) Lymphocytes # (Auto) 4.4 x10^3/uL (1.0-4.8) Monocytes # (Auto) 0.7 x10^3/uL (0.0-1.1) Eosinophils # (Auto) 0.2 x10^3/uL (0.0-0.7) Basophils # (Auto) 0.1 x10^3/uL (0.0-0.2) D-Dimer (Leigh) 0.51 mg/L (0.00-0.50) Sodium Level 139 mmol/L (136-145) Potassium Level 3.6 mmol/L (3.5-5.1) Chloride Level 103 mmol/L (98-107) Carbon Dioxide Level 29 mmol/L (21-32) Anion Gap 7 (6-14) Blood Urea Nitrogen 13 mg/dL (7-20) Creatinine 0.8 mg/dL (0.6-1.0) Estimated GFR (Cockcroft-Gault) 91.9 Glucose Level 264 mg/dL (70-99) Calcium Level 8.6 mg/dL (8.5-10.1) Total Bilirubin 0.4 mg/dL (0.2-1.0) Direct Bilirubin 0.1 mg/dL (0.0-0.2) Aspartate Amino Transf (AST/SGOT) 14 U/L (15-37) Alanine Aminotransferase (ALT/SGPT) 25 U/L (14-59) Alkaline Phosphatase 63 U/L (46-116) Troponin I Quantitative < 0.017 ng/mL (0-0.055) Total Protein 7.0 g/dL (6.4-8.2) Albumin 3.1 g/dL (3.4-5.0) Triglycerides Level 143 mg/dL (0-150) Cholesterol Level 178 mg/dL (0-200) LDL Cholesterol, Calculated 124 mg/dL (0-100) VLDL Cholesterol, Calculated 28 mg/dL (0-40) Non-HDL Cholesterol Calculated 152 mg/dL (0-129) HDL Cholesterol 26 mg/dL (40-60) Cholesterol/HDL Ratio 6.0 Lipase 171 U/L (73-393) Serum Test, Qualitative Negative (NEG) Urine Collection Type U cath Urine Color Yellow Urine Clarity Clear Urine pH 6.5 Urine Specific [place] 1.020 Urine Protein Trace (NEG-TRACE) Urine Glucose (UA) >=1000 mg/dL (NEG) Urine Ketones (Stick) Neg mg/dL (NEG) Urine Blood Neg (NEG) Urine Nitrite Neg (NEG) Urine Bilirubin Neg (NEG) Urine Urobilinogen Dipstick 4 mg/dL (0.2 mg/dL) Urine Leukocyte Esterase Neg (NEG) Urine RBC Occ /HPF (0-2) Urine WBC 0 /HPF (0-4) Urine Squamous Epithelial Cells Occ /LPF Urine Bacteria 0 /HPF (0-FEW) Urine Mucus Marked /LPF Urine Opiates Screen Neg (NEG) Urine Methadone Screen Neg (NEG) Urine Barbiturates Neg (NEG) Urine Phencyclidine Screen Neg (NEG) Urine Amphetamine/Methamphetamine Neg (NEG) Urine Benzodiazepines Screen Neg (NEG) Urine Cocaine Screen Neg (NEG) Urine Cannabinoids Screen Neg (NEG) Urine Ethyl Alcohol Neg (NEG) Glucose (Fingerstick) 326 mg/dL (70-99) 270 mg/dL (70-99) Test 06/17/16 20:21 06/18/16 06:29 06/18/16 07:26 Glucose (Fingerstick) 279 mg/dL (70-99) 280 mg/dL (70-99) Troponin I Quantitative < 0.017 ng/mL (0-0.055) Medications Current Medications Sodium Chloride 1,000 ml @ 1,000 mls/hr Q1H IV Last administered on 06/17/16 06:30; Start 06/17/16 at 06:30; Stop 06/17/16 at 07:29; Status DC Iohexol (Omnipaque 300 Mg/ml) 75 ml 1X ONCE IV Last administered on 06/17/16 07:03; Start 06/17/16 at 07:15; Stop 06/17/16 at 07:16; Status DC Info (Do NOT chart on this entry -- for MONITORING) 1 each PRN DAILY PRN MC SEE COMMENTS; Start 06/17/16 at 07:00; Stop 06/19/16 at 06:59 Iohexol (Omnipaque 300 Mg/ml) 75 ml STK-MED ONCE .ROUTE ; Start 06/17/16 at 06:54 ; Stop 06/17/16 at 06:55; Status DC Potassium Chloride (Klor-Con) 20 meq 1X ONCE PO Last administered on 06/17/16 07:50; Start 06/17/16 at 07:30; Stop 06/17/16 at 07:31; Status DC Ondansetron HCl (Zofran) 4 mg PRN Q4HRS PRN IV NAUSEA/VOMITING Last administered on 06/17/16 07:50; Start 06/17/16 at 07:00; Stop 06/18/16 at 06:59; Status DC Nitroglycerin (Nitrostat) 0.4 mg PRN Q5MIN PRN SL CHEST PAIN Last administered on 06/17/16 07:45; Start 06/17/16 at 07:00; Stop 06/18/16 at 06:59; Status DC Aspirin (Aspirin Enteric Coated) 81 mg DAILYWBKFT PO ; Start 06/18/16 at 08:00 Metoprolol Tartrate (Lopressor) 12.5 mg BID PO ; Start 06/17/16 at 21:00; Stop at 21:00; Status DC Ketorolac Tromethamine (Toradol) 30 mg 1X ONCE IV Last administered on 09:36; Start 06/17/16 at 09:30; Stop 06/17/16 at 09:31; Status DC Pantoprazole Sodium (Protonix) 40 mg DAILYAC PO ; Start 06/18/16 at 07:30 Metoprolol Tartrate (Lopressor) 12.5 mg BID PO Last administered on 06/17/16 21 :07; Start 06/17/16 at 09:30 Insulin Aspart (Novolog) 0-7 UNITS QIDACHS SQ Last administered on 06/18/16 07 :44; Start 06/17/16 at 11:30 Dextrose 12.5 gm PRN Q15MIN PRN IV SEE COMMENTS; Start 06/17/16 at 11:30 Oxycodone HCl (Roxicodone) 5 mg PRN Q4HRS PRN PO PAIN Last administered on 06/18t 07:39; Start 06/17/16 at 13:45 Morphine Sulfate (Morphine 4mg Syringe) 4 mg PRN Q6HRS PRN IV PAIN; Start at 13:45 Diphenhydramine HCl (Benadryl) 25 mg STK-MED ONCE PO ; Start 06/18/16 at 03:50; Stop 06/18/16 at 03:51; Status DC Acetaminophen (Tylenol) 325 mg STK-MED ONCE PO ; Start 06/18/16 at 03:50; Stop 06/18/16 at 03:51; Status DC Regadenoson (Lexiscan) 0.4 mg 1X ONCE IV ; Start 06/18/16 at 08:30; Stop at 08:31; Status DC Active Scripts Active Reported Restora Capsule (Om-3/Dha/Epa/Fish Oil/L. Casei) 1 Each Capsule 1 Each PO DAILY Topamax (Topiramate) 50 Mg Tablet 50 Mg PO QHS Bystolic (Nebivolol Hcl) 10 Mg Tablet 10 Mg PO DAILY Dexilant (Dexlansoprazole) 60 Mg Cap.drEduardomp 60 Mg PO DAILY Imitrex (Sumatriptan Succinate) 100 Mg Tablet 100 Mg PO PRN PRN Trulicity (Dulaglutide) 1.5 Mg/0.5 Ml Pen.injctr 1.5 Mg SQ WEEKLY Humalog (Insulin Lispro) 100 Unit/1 Ml Vial 25 Unit SQ TIDWMEALS Latuda (Lurasidone Hcl) 40 Mg Tablet 60 Mg PO QHS Toujeo Solostar (Insulin Glargine,Hum.rec.anlog) 300 Unit/1 Ml Insuln.pen 40 Unit SQ QHS Vitals/I & O Vital Sign - Last 24 Hours 06/17/16 06/17/16 06/17/16 06/17/16 15:23 18:31 19:35 21:07 Temp 98.3 98.2 Pulse 69 72 72 Resp 20 20 B/P (MAP) 146/79 (101) 135/78 (97) 135/78 Pulse Ox 94 95 O2 Delivery Room Air Room Air Room Air 06/17/16 06/17/16 06/17/16 06/18/16 21:07 22:05 23:25 05:03 Temp 98.5 98.5 Pulse 75 80 Resp 18 18 20 18 B/P (MAP) 144/84 (104) 132/79 (96) Pulse Ox 94 96 O2 Delivery Room Air Room Air Room Air Room Air 06/18/16 07:55 O2 Delivery Room Air Intake and Output 06/17/16 06/17/16 06/18/16 15:00 23:00 07:00 Intake Total 370 ml 680 ml 120 ml Balance 370 ml 680 ml 120 ml FABIANA MCGRAW PRODUCT MANAGEMENT INTERNSHIP June 18, 2016 10:58
[2016-06-18 11:30] VITALS: BP 170/96
[2016-06-18] MEDS: METOPROLOL TART IMMED RELEASE 25 MG TABLET PO SCH (13:08)
--- NOTE | 2016-06-18 13:21 | RAD ---
APPROVED REPORT Test Type: Pharmacological Stress Nurse/Tech: RT Tiffany (R) (N) Test Indications: chst pain Cardiac History: none Medications: see EHR Medical History: see EHR Resting ECG: SR, early repol Resting Heart Rate: 59 bpm Resting Blood Pressure: 154/81mmHg Nurse/Tech Notes Consent: The procedure was explained to the patient in lay terms. Informed consent was witnessed. Matti eout was entered into [employer]. History and Stress Test performed by RT Tiffany (R) (N) Pharm. Details Pharmacologic stress testing was performed using 0.4mg per 5ml of regadenoson given intravenously ove r 7-10 seconds. POST EXERCISE Reason for Termination: Infusion complete Max HR: 106 bpm Max Blood Pressure: 152/86mmHg Chest Pain: No. INTERPRETATION Stress EKG Conclusion: Baseline EKG showed sinus rhythm. No ischemic changes at peak stress. No arr hythmias. Imaging Protocol IMAGE PROTOCOL: Rest Tc-99m/stress Tc-99m 1 day Rest: Stress: Viability: Radiopharm.Tc99m [id number] Sestamibi Dose10.8mCi 31mCi Duration 20min. 20min. Img Date 06/18/2016 06/18/2016 Inj-Img [id number]. 60min. Rest Admin Site:IV - Left ForearmAdministrator: RT Tiffany (R)(N) Stress Admin Site: IV - Left ForearmAdministrator: RT Missy AllenR)(N) STRESS DATA End Diast. Vol.75.0mlAv. Heart Rate74.0bpm LVEDV index BSA2.0mlCardiac Output0.1L/min End Syst. Vol.22.0mlCO Index BSA3.9L/min LVESV index BSA0.0mlMyocardial Jpdl475.0g Eject. Grhzxqvf96.0% Stress Rates Pk. Fill Rate2.84EDV/secLVtime Pk. Fill 119.07msec Pk. Empty Rate3.45ESV/secLVtime Pk. Acigg683.26msec 02/11 Pk. Fill1.98EDV/sec Stress Scores Regional WT0.00Summed WT8.00 Regional WM0.00Summed WM1.00 Study quality was good. Left Ventricular size was at Rest and Stress. Lung uptake was Normal. Left Ventricular ejection fraction is 71%. LV Perfusion Scintigraphic images did not show any significant fixed or reversible defects. However, there is moise sient ischemic dilatation of 1.38 Wall Motion Normal regional wall motion LV Perf. Quant 17 Seg. SSS3.00 17 Seg. SRS1.00 17 Seg. SDS3.00 Stress Defect Extent (% LAD)0.00Rest Defect Extent (% LAD)2.50Rev. Defect Extent (% LAD)0.00 Stress Defect Extent (% LCX) 21.30Rest Defect Extent (% LCX)7.50Rev. Defect Extent (% LCX)21.30 Stress Defect Extent (% RCA)0.00Rest Defect Extent (% RCA)0.00Rev. Defect Extent (% RCA)0.00 Stress Defect Extent (% AMANDA)4.80Rest Defect Extent (% AMANDA)4.60Rev. Defect Extent (% AMANDA)4.80 Conclusion 1. Regadenoson cardioisotope stress test did not show any significant perfusion defects but there is transient ischemic dilatation of 1.38. 2. Normal left ventricular systolic function with ejection fraction calculated at 71%. 3. Moderate to high risk study based on TID. Recommend cardiac cath fpr definitive evaluation.
[2016-06-18 16:29] VITALS: BP 146/93
== END 2016-06-18 18:37 | disposition short-term general hospital (02) ==
LOC: ER 05:51 → 1 SOUTH 06:56 → ER 08:02
PROVIDERS: ADMIT Internal Medicine; ATTEND Internal Medicine
DX: R07.89 Other chest pain (principal); I10 Essential (primary) hypertension; E78.5 Hyperlipidemia, unspecified; E11.9 Type 2 diabetes mellitus without complications; K21.9 Gastro-esophageal reflux disease without esophagitis; K27.9 Peptic ulcer, site unspecified, unspecified as acute or chronic, without hemorrhage or perforation; E03.9 Hypothyroidism, unspecified; J44.9 Chronic obstructive pulmonary disease, unspecified; E78.00 Pure hypercholesterolemia, unspecified; F17.210 Nicotine dependence, cigarettes, uncomplicated; Z87.11 Personal history of peptic ulcer disease; Z83.3 Family history of diabetes mellitus; Z82.49 Family history of ischemic heart disease and other diseases of the circulatory system
CPT/HCPCS: 36415; 71010; 71275; 78452; 80048; 80061; 80076; 81001; 82947; 83690; 84443; 84484; 84703; 85027; 85379; 93005; 93017; 93306; 96361; 96372; 96374; 96375; 99285; A9500; G0378; G0481; J1815; J1885; J2405; J2785; Q9967; 96376; G0379; J7030

== ENCOUNTER 2016-06-28 23:32 | Emergency (ER) | payer SELFPAY ==
[~2016-06-28] VITALS: Ht 162.6 cm; Wt 69.6 kg
[~2016-06-28 23:32] MED LIST changes: +DEXL60CA2 PO; +DULA1.5P SQ; +INSU100V SQ; +INSU300I SQ; +LURA40TA PO; +NEBI10TA3 PO; +OM-31CAP7 PO; +SUMA100T3 PO; +TOPI50TA38 PO
[2016-06-29] MEDS ORDERED: ASPIRIN 81 MG TAB.CHEW PO ONE (00:15)
[2016-06-29 01:09] LABS: ALBUMIN 3.5 g/dL (3.4-5.0); ALBUMIN/GLOBULIN RATIO 0.8 (1.0-1.7); CALCIUM 9.1 mg/dL (8.5-10.1); CREATININE 0.8 mg/dL (0.6-1.0); GFR 91.9; POTASSIUM 3.8 mmol/L (3.5-5.1); TOTAL BILIRUBIN 0.3 mg/dL (0.2-1.0); TOTAL PROTEIN 7.9 g/dL (6.4-8.2)
--- NOTE | 2016-06-29 01:11 | EKG ---
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
[2016-06-29 01:43] LABS: BASO # 0.1 x10^3/uL (0.0-0.2); BASO % 1 % (0-3); EOS # 0.2 x10^3/uL (0.0-0.7); EOS % 2 % (0-3); HEMATOCRIT 40.8 % (36.0-47.0); HEMOGLOBIN 14.3 g/dL (12.0-15.5); LYMPH # 3.5 x10^3/uL (1.0-4.8); LYMPH % 40 % (24-48); MEAN CORPUSCULAR HEMOGLOBIN 30 pg (25-35); MEAN CORPUSCULAR HGB CONC 35 g/dL (31-37); MEAN CORPUSCULAR VOLUME 86 fL (79-100); MONO # 0.5 x10^3/uL (0.0-1.1); MONO % 6 % (0-9); NEUT # 4.6 x10^3uL (1.8-7.7); NEUT % 51 % (31-73); PLATELET COUNT 260 x10^3/uL (140-400); RED BLOOD COUNT 4.73 x10^6/uL (3.50-5.40); RED CELL DISTRIBUTION WIDTH 13.9 % (11.5-14.5); WHITE BLOOD COUNT 8.9 x10^3/uL (4.0-11.0)
[2016-06-29] MEDS ORDERED: IV NORMAL SALINE 1,000ML 1,000 ML IV ONE (02:00)
[2016-06-29 02:33] VITALS: BP 147/95
--- NOTE | 2016-06-29 02:55 | PHYS DOC ---
Past History Past Medical History: COPD, Diabetes, High Cholesterol, UTI Past Surgical History: , Hysterectomy, Tonsillectomy Alcohol Use: None Drug Use: None Adult General Chief Complaint Chief Complaint: Neck Pain HPI HPI Patient is a 50 year old female who presents with neck & chest pain. The patient reports constant sharp/stabbing pain to right side of neck & chest for about 2 weeks. She states symptoms worsened shortly prior to arrival while at rest. She reports shortness of breath, denies nausea/diaphoresis. Denies fevers/chills, cough, lower extremity pain/swelling. She has history of previous symptoms resulting in hospital admission earlier this month, ultimately had heart cath at [facility] which showed no obstructing lesions. She also had chest CTA on 06/17 which was negative for PE. She has diabetes. Her limnologist is Dr. Raoms. Review of Systems Review of Systems Constitutional: Denies fever or chills Eyes: Denies change in visual acuity HENT: Denies nasal congestion or sore throat Respiratory: Denies cough, reports shortness of breath Cardiovascular: Reports chest pain, denies edema GI: Denies abdominal pain, nausea, vomiting, bloody stools or diarrhea Musculoskeletal: reports neck pain, denies back pain or joint pain Integument: Denies rash or skin lesions Neurologic: Denies headache, focal weakness or sensory changes Current Medications Current Medications Current Medications Medications (Trade) Dose Ordered Sig/Deysi Start Time Stop Time Status Last Admin Dose Admin Aspirin (Children'S Aspirin) 324 mg 1X ONCE 06/29/16 00:15 06/29/16 01:05 DC 06/29/16 00:15 324 MG Sodium Chloride 1,000 ml @ 1,000 mls/hr 1X ONCE 06/29/16 02:00 06/29/16 02:59 06/29/16 02:00 1,000 MLS/HR Allergies Allergies Allergies Coded Allergies Type Severity Reaction Last Updated Verified tramadol Allergy Intermediate RASH, NAUSEA/VOMITING 02/05/15 Yes Physical Exam Physical Exam Constitutional: Well developed, well nourished, no acute distress, non-toxic appearance. HENT: Normocephalic, atraumatic, bilateral external ears normal, oropharynx moist, nose normal. Eyes: PERRLA, EOMI, conjunctiva normal, no discharge. Neck: supple, no stridor. tenderness to right sternocleidomastoid without swelling, mass, or crepitus. Cardiovascular: RRR, no murmurs, no edema. Lungs & Thorax: LCTAB, no wheezing, no respiratory distress. reproducible tenderness over left anterior chest wall. Abdomen: soft, nontender, nondistended. Skin: Warm, dry, no erythema, no rash. Back: No tenderness. Extremities: No tenderness, no edema. no calf tenderness or swelling. Neurologic: Alert and oriented X 3, symmetric strength/sensation to UE, no focal deficits noted. Psychologic: Affect normal, judgement normal, mood normal. Current Patient Data Lab Results Laboratory Tests Test 06/29/16 00:37 06/29/16 02:00 White Blood Count 8.9 x10^3/uL (4.0-11.0) Red Blood Count 4.73 x10^6/uL (3.50-5.40) Hemoglobin 14.3 g/dL (12.0-15.5) Hematocrit 40.8 % (36.0-47.0) Mean Corpuscular Volume 86 fL (79-100) Mean Corpuscular Hemoglobin 30 pg (25-35) Mean Corpuscular Hemoglobin Concent 35 g/dL (31-37) Red Cell Distribution Width 13.9 % (11.5-14.5) Platelet Count 260 x10^3/uL (140-400) Neutrophils (%) (Auto) 51 % (31-73) Lymphocytes (%) (Auto) 40 % (24-48) Monocytes (%) (Auto) 6 % (0-9) Eosinophils (%) (Auto) 2 % (0-3) Basophils (%) (Auto) 1 % (0-3) Neutrophils # (Auto) 4.6 x10^3uL (1.8-7.7) Lymphocytes # (Auto) 3.5 x10^3/uL (1.0-4.8) Monocytes # (Auto) 0.5 x10^3/uL (0.0-1.1) Eosinophils # (Auto) 0.2 x10^3/uL (0.0-0.7) Basophils # (Auto) 0.1 x10^3/uL (0.0-0.2) Prothrombin Time 9.9 SEC (9.4-11.4) Prothrombin Time INR 1.0 (0.9-1.1) PTT 23 SEC (23-33) Sodium Level 138 mmol/L (136-145) Potassium Level 3.8 mmol/L (3.5-5.1) Chloride Level 100 mmol/L (98-107) Carbon Dioxide Level 28 mmol/L (21-32) Anion Gap 10 (6-14) Blood Urea Nitrogen 12 mg/dL (7-20) Creatinine 0.8 mg/dL (0.6-1.0) Estimated GFR (Cockcroft-Gault) 91.9 BUN/Creatinine Ratio 15 (6-20) Glucose Level 297 mg/dL (70-99) H Calcium Level 9.1 mg/dL (8.5-10.1) Total Bilirubin 0.3 mg/dL (0.2-1.0) Aspartate Amino Transferase (AST) 15 U/L (15-37) Alanine Aminotransferase (ALT) 25 U/L (14-59) Alkaline Phosphatase 70 U/L (46-116) Troponin I Quantitative < 0.017 ng/mL (0-0.055) < 0.017 ng/mL (0-0.055) XR-Sns-C-Type Natriuretic Peptide 17 pg/mL (0-124) Total Protein 7.9 g/dL (6.4-8.2) Albumin 3.5 g/dL (3.4-5.0) Albumin/Globulin Ratio 0.8 (1.0-1.7) L EKG EKG interpreted by me: NSR rate 81, no ST elevation, T waves inverted without depression in V1, normal intervals, no ectopy.[] Radiology/Procedures Radiology/Procedures CXR: interpreted by me: no cardiomegaly, no infiltrate, no pneumothorax.[] Course & Med Decision Making Course & Med Decision Making Pertinent Labs and Imaging studies reviewed. (See chart for details) The patient presents with chest pain. Administered aspirin on arrival. Obtained labs, EKG, chest x-ray. No acute abnormalities identified. Ordered repeat troponin which was also negative. HEART score is 3, low risk, & recent negative heart cath. She had hyperglycemia and received normal saline fluid bolus. Her symptoms improved. Recommend rest, Tylenol or ibuprofen for pain. Follow-up with primary care physician in 2-3 days if symptoms continue. Return to the emergency department for severe chest pain or shortness of breath, any otherwise worsening condition. Discharged home in stable condition. [] Dragon Disclaimer Dragon Disclaimer This chart was dictated in whole or in part using Voice Recognition software in a busy, high-work load, and often noisy Emergency Department environment. It may contain unintended and wholly unrecognized errors or omissions. Departure Departure: Impression: Primary Impression: Chest pain Additional Impressions: Hyperglycemia Neck pain Disposition: HOME, SELF-CARE Condition: STABLE Referrals: SEAN POWELL DO (PCP) Patient Instructions: Chest Pain (Nonspecific), [id number] Additional Instructions: You were seen in the emergency department today for neck and chest pain. Tests here did not show a serious cause of symptoms. Please take Tylenol or ibuprofen for pain. Follow-up with primary care physician in 2-3 days if symptoms continue. Return to the emergency department for severe shortness of breath or chest pain, or any otherwise worsening condition. Problem Qualifiers DEANDRE POTTER MD June 29, 2016 02:55
--- NOTE | 2016-06-29 08:11 | RAD ---
Indication: Chest pain Technique: Upright portable chest radiograph was obtained. Comparison is from June 17, 2016. Findings: The lungs are clear. The cardiopulmonary silhouette is within normal limits. The bony structures are intact. Impression: No active pulmonary disease.
== END 2016-06-29 03:04 | disposition home or self-care (01) ==
LOC: ER 23:32
DX: R07.89 Other chest pain (principal); M54.2 Cervicalgia; E11.65 Type 2 diabetes mellitus with hyperglycemia; E78.00 Pure hypercholesterolemia, unspecified; J44.9 Chronic obstructive pulmonary disease, unspecified; Z87.440 Personal history of urinary (tract) infections; Z88.6 Allergy status to analgesic agent
CPT/HCPCS: 36415; 71010; 80048; 80053; 83880; 84484; 85027; 85610; 85730; 93005; 96360; 99285-25; J7030

== ENCOUNTER 2016-07-18 22:10 | Emergency (ER) | payer SELFPAY ==
[~2016-07-18] VITALS: Ht 162.6 cm; Wt 61.2 kg
--- NOTE | 2016-07-18 23:06 | PHYS DOC ---
Past History Past Medical History: COPD, Diabetes, High Cholesterol, UTI Past Surgical History: , Hysterectomy, Tonsillectomy Alcohol Use: None Drug Use: None Adult General Chief Complaint Chief Complaint: LOWER EXT PAIN HPI HPI Patient is a 50 year old F who presents with lower leg pain for the past month. Patient states the pain has been a dull ache and it increases and decreases when she walks on it and rested. Patient denies any trauma the leg. Patient denies any history of DVTs. Patient has no other complaints. Pertinent exam findings: Right lower extremity tenderness, no swelling noted, tenderness to palpation right knee with decreased range of motion secondary to pain, tenderness to palpation right hip with decreased range of motion, positive dorsal pedis pulse with cap refill of the right foot less than 2 seconds ED course: Patient was seen and examined x-ray of the pelvis and right hip were ordered, x- ray of the right knee were ordered, ultrasound left lower extremity to rule out DVT was ordered 2354: It was learned that the patient had been seen at another hospital prior to coming to [facility]. X-rays were taken at that hospital. Patient hospital was contacted and they faxed over the x-ray report of patient's right knee which was unremarkable for an acute fracture 0035: On reexamination patient is updated on the x-ray results and ultrasound results and the patient is stable for discharge and recommended she follow up with the family doctor for further pain management and was suggested she use [id number] pain medication Pertinent results: X-ray right hip and pelvis unremarkable for acute fracture Ultrasound right lower extremity negative for DVT MDM: After reviewing the chart, CC/HPI/PMH, physical exam, [radiological results], I do not believe the patient has an acute DVT or not is fracture of her right lower extremity. I believe patient is stable for discharge. Recommended patient follow-up with PCP for further evaluation and management of her chronic leg pain. Additional verbal discharge instructions were provided to the patient and that if symptoms get worse or any new symptoms arise that are worrisome to the patient she is to return to the emergency room immediately Review of Systems Review of Systems GEN: Denies fevers, chills, sweats HEENT: Denies blurred vision, sore throat CV: Denies chest pain RESP: Denies shortness of air, cough GI: Denies n/v/d NEURO: Denies confusion, dizziness MSK: Right leg pain Allergies Allergies Allergies Coded Allergies Type Severity Reaction Last Updated Verified tramadol Allergy Intermediate RASH, NAUSEA/VOMITING 02/05/15 Yes Physical Exam Physical Exam GEN.: No apparent distress. Alert and oriented. HEENT: Head is normocephalic, atraumatic NECK: Supple. LUNGS: CTAB. HEART: RRR, S1, S2 present. Peripheral pulses intact ABDOMEN: Soft, nontender. Positive bowel sounds. EXTREMITIES: Without any cyanosis, Right lower extremity tenderness, no swelling noted, tenderness to palpation right knee with decreased range of motion secondary to pain, tenderness to palpation right hip with decreased range of motion, positive dorsal pedis pulse with cap refill of the right foot less than 2 seconds NEUROLOGIC: Normal speech, normal tone PSYCHIATRIC: Normal affect, normal mood. SKIN: No ulcerations EKG EKG [] Radiology/Procedures Radiology/Procedures Ultrasound right lower extremity negative for DVT X-ray right hip and pelvis no obvious fracture [] Course & Med Decision Making Course & Med Decision Making Pertinent Labs and Imaging studies reviewed. (See chart for details) [] Dragon Disclaimer Dragon Disclaimer This chart was dictated in whole or in part using Voice Recognition software in a busy, high-work load, and often noisy Emergency Department environment. It may contain unintended and wholly unrecognized errors or omissions. Departure Departure: Impression: Primary Impression: Right leg pain Disposition: HOME, SELF-CARE Condition: IMPROVED Referrals: PCP,NO (PCP) Patient Instructions: Leg Cramps Additional Instructions: Please follow up with her family doctor in one to 2 days and take over-the- counter pain medication as needed DESMOND WOODARD DO Jul 18, 2016 23:06
--- NOTE | 2016-07-19 00:29 | RAD ---
Right leg venous Doppler study: Clinical indications: Right leg swelling and pain. Right hip pain. Findings: Duplex sonography (including cervantes scale evaluation and color flow and waveform spectral analysis) of the proximal aspect of the greater saphenous vein and proximal aspect of the profunda femoral vein and the entire length of the common femoral and superficial femoral and popliteal veins and the tibioperoneal trunk and the proximal aspect of the posterior tibial and peroneal veins of the right leg was performed. Normal compressibility, augmentation of color Doppler flow after calf compression, and respiratory variation of Doppler flow is seen. Thus, there are no sonographic findings of deep venous thrombosis within these veins. Impression: There are no sonographic findings of deep venous thrombosis within the veins discussed above of the right lower extremity. Electronically signed by: Ammon Fallon MD (07/19/2016 12:25 AM)
[2016-07-19 01:29] VITALS: BP 139/84
--- NOTE | 2016-07-19 07:57 | RAD ---
Indication pain. AP and frog leg views of the right hip were obtained as well as an AP view of the pelvis. No bony abnormality is seen
== END 2016-07-19 00:40 | disposition home or self-care (01) ==
LOC: ER 22:10
DX: M79.604 Pain in right leg (principal); E78.00 Pure hypercholesterolemia, unspecified; E11.9 Type 2 diabetes mellitus without complications; J44.9 Chronic obstructive pulmonary disease, unspecified; N39.0 Urinary tract infection, site not specified; Z88.6 Allergy status to analgesic agent
CPT/HCPCS: 73502; 93971; 99284-25

== ENCOUNTER 2016-09-21 19:22 | Emergency (ER) | payer SELFPAY ==
[2016-09-21 19:33] VITALS: BP 143/91
--- NOTE | 2016-09-21 19:56 | PHYS DOC ---
Past History Past Medical History: Diabetes, GERD, High Cholesterol, Hypertension, Hypothyroid, P.U.D Past Surgical History: Cholecystectomy, Hysterectomy, Tonsillectomy Alcohol Use: Rarely Drug Use: None Adult General Chief Complaint Chief Complaint: FOOT INJURY PAIN [facility] HPI Patient is a 51 year old F who presents with foot injury. Jena states that 3 days ago she injured her right fifth toe while walking she accidentally kicked a door frame. She has been able to walk during this time with pain. She feels that her symptoms have gradually worsened during this time. She notes constant dull pain in the right fifth toe that fluctuates in intensity. Her pain is worse with walking and palpation. Her pain is improved with rest and positioning. She has no other associated symptoms. She does have risk factors that include diabetes and peripheral vascular disease Review of Systems Review of Systems Constitutional: Denies fever or chills [] Eyes: Denies change in visual acuity, redness, or eye pain [] HENT: Denies nasal congestion or sore throat [] Respiratory: Denies cough or shortness of breath [] Cardiovascular: No additional information not addressed in HPI [] GI: Denies abdominal pain, nausea, vomiting, bloody stools or diarrhea [] : Denies dysuria or hematuria [] Musculoskeletal: Denies back pain or joint pain [] Integument: Denies rash or skin lesions [] Neurologic: Denies headache, focal weakness or sensory changes [] Endocrine: Denies polyuria or polydipsia [] Family History Family History Noncontributory Current Medications Current Medications Medications were reviewed Allergies Allergies Allergies Coded Allergies Type Severity Reaction Last Updated Verified tramadol Allergy Intermediate RASH, NAUSEA/VOMITING 02/05/15 Yes Physical Exam Physical Exam Constitutional: Well developed, well nourished, no acute distress, non-toxic appearance. [] HENT: Normocephalic, atraumatic, bilateral external ears normal, oropharynx moist, no oral exudates, Eyes: EOMI, conjunctiva normal, no discharge. [] Neck: Normal range of motion, no tenderness, supple, no stridor. [] Cardiovascular:Heart rate regular rhythm, no murmur [] Lungs & Thorax: Bilateral breath sounds clear to auscultation [] Abdomen: Bowel sounds normal, soft, no tenderness, no masses, no pulsatile masses. [] Skin: Warm, dry, no erythema, no rash. Right fifth toe notable for pain to palpation. Normal range of motion. No pain noted at MTP of the fifth toe. No midfoot pain noted. Normal pulses. no notable erythema. No other signs of infection noted Back: No tenderness, no CVA tenderness. [] Extremities: No tenderness, no cyanosis, no clubbing, ROM intact, no edema. [] Neurologic: Alert and oriented X 3, normal motor function, normal sensory function, no focal deficits noted. [] Psychologic: Affect normal, judgement normal, mood normal. [] Current Patient Data Vital Signs Vital Signs Date Time Temp Pulse Resp B/P (MAP) Pulse Ox O2 Delivery O2 Flow Rate FiO2 09/21/16 19:33 98.4 100 18 98 Room Air Course & Med Decision Making Course & Med Decision Making Pertinent Labs and Imaging studies reviewed. (See chart for details) Imaging was declined. Caridad was placed in a hard soled postop shoe Dragon Disclaimer Dragon Disclaimer This chart was dictated in whole or in part using Voice Recognition software in a busy, high-work load, and often noisy Emergency Department environment. It may contain unintended and wholly unrecognized errors or omissions. Departure Departure: Impression: Primary Impression: Toe sprain Disposition: HOME, SELF-CARE Condition: STABLE Referrals: ETIENNE POWELL DO (PCP) Patient Instructions: Hard-Soled Shoe Additional Instructions: Jena was seen in the emergency room for toe pain. No emergency medical condition was found on history and physical exam. Jena was placed in a hard sole postop shoe and advised to wear while walking. She was advised to follow up with her primary care doctor in the next 3-5 days if her symptoms do not improve. She is also advised to return to the emergency room if she develops new or worsening symptoms. Problem Qualifiers Primary Impression: Toe sprain Encounter type: initial encounter Qualified Codes: S93.509A - Unspecified sprain of unspecified toe(s), initial encounter KAROLINE VELÁZQUEZ MD Sep 21, 2016 19:56
[2016-09-21] MEDS ORDERED: IBUPROFEN 600 MG TABLET. PO ONE (20:30)
== END 2016-09-21 20:05 | disposition home or self-care (01) ==
LOC: ER 19:22
DX: S93.504A Unspecified sprain of right lesser toe(s), initial encounter (principal); E11.9 Type 2 diabetes mellitus without complications; K21.9 Gastro-esophageal reflux disease without esophagitis; E78.00 Pure hypercholesterolemia, unspecified; I10 Essential (primary) hypertension; E03.9 Hypothyroidism, unspecified; Z88.6 Allergy status to analgesic agent; W22.8XXA Striking against or struck by other objects, initial encounter; Y93.01 Activity, walking, marching and hiking; Y99.8 Other external cause status; Y92.89 Other specified places as the place of occurrence of the external cause
CPT/HCPCS: 99282

== ENCOUNTER 2018-01-30 13:29 | Emergency (ER) | payer SELFPAY ==
[~2018-01-30] VITALS: Ht 162.6 cm; Wt 69.6 kg
[~2018-01-30 13:29] MED LIST changes: -ALBI50PE SQ; +ALBI50PE3 SQ; -RAMI5CAP PO; +RAMI5CAP50 PO
--- NOTE | 2018-01-30 14:20 | RAD ---
CT scan of the head without contrast 01/30/2018 Clinical History: Fall yesterday with left-sided weakness. Headaches and dizziness. Technique: Unenhanced, contiguous, 5 mm axial sections were obtained through the head. One or more of the following individualized dose reduction techniques were utilized for this study: 1. Automated exposure control. 2. Adjustment of the mA and/or kV according to patient size. 3. Use of iterative reconstruction technique. Findings: Comparison study is dated 08/15/2003. There is generalized parenchymal atrophy which particularly involves the right frontal and right parietal lobes. Ex vacuo dilatation of the right lateral ventricle is again seen. No acute parenchymal abnormality is seen. No extra-axial fluid collection is noted. No skull fracture is seen. Impression: No acute intracranial abnormality is seen. Electronically signed by: Mingo Rizo MD (01/30/2018 2:16 PM) [facility] [place]
--- NOTE | 2018-01-30 14:23 | RAD ---
PROCEDURE: PORTABLE CHEST 1V CLINICAL INDICATION: weakness COMPARISON: None FINDINGS: No pneumothorax identified. Cardiac and mediastinal contours unremarkable. No pulmonary consolidation or acute airspace disease. No acute osseous abnormalities identified. IMPRESSION: No pulmonary consolidation or acute airspace disease. Electronically signed by: Darell Figueroa DO (01/30/2018 2:19 PM) [facility]
--- NOTE | 2018-01-30 14:25 | RAD ---
Indication:left foot pain, fell 01-29-2018 TECHNIQUE: 3 views of the left foot COMPARISON:None FINDINGS/ impression: No acute fracture or dislocation. Electronically signed by: Darell Figueroa DO (01/30/2018 2:21 PM) [facility]
[2018-01-30 14:46] LABS: BASO # 0.1 x10^3/uL (0.0-0.2); BASO % 1 % (0-3); EOS # 0.1 x10^3/uL (0.0-0.7); EOS % 1 % (0-3); HEMATOCRIT 47.3 % (36.0-47.0); HEMOGLOBIN 16.2 g/dL (12.0-15.5); LYMPH # 2.9 x10^3/uL (1.0-4.8); LYMPH % 35 % (24-48); MEAN CORPUSCULAR HEMOGLOBIN 30 pg (25-35); MEAN CORPUSCULAR HGB CONC 34 g/dL (31-37); MEAN CORPUSCULAR VOLUME 88 fL (79-100); MONO # 0.5 x10^3/uL (0.0-1.1); MONO % 6 % (0-9); NEUT # 4.7 x10^3uL (1.8-7.7); NEUT % 57 % (31-73); PLATELET COUNT 280 x10^3/uL (140-400); RED CELL DISTRIBUTION WIDTH 13.5 % (11.5-14.5); WHITE BLOOD COUNT 8.3 x10^3/uL (4.0-11.0)
--- NOTE | 2018-01-30 14:50 | PHYS DOC ---
Past History Past Medical History: Diabetes, GERD, High Cholesterol, Hypertension, Hypothyroid, P.U.D Past Surgical History: Cholecystectomy, Hysterectomy, Tonsillectomy Alcohol Use: Rarely Drug Use: None Adult General Chief Complaint Chief Complaint: MECHANICAL FALL HPI HPI Patient is a 52-year-old female who presents with complaint of weakness in her left leg and left foot pain. Patient states that she was out and had started to get out of her car when her leg gave out on her and she twisted her foot. She rates the pain in her foot at a 7 out of 10. Patient states that she started to walk from her car and then her leg gave out on her again and again she hurt her foot. Patient states that she has a history of CVA and is worried that she may have had another stroke. She denies any facial droop or speech abnormality. She also denies any left upper extremity weakness. Patient states that the pain in her foot is worsened with weightbearing. She denies any headache or dizziness. Review of Systems Review of Systems Constitutional: Denies fever or chills [] Eyes: Denies change in visual acuity, redness, or eye pain [] Respiratory: Denies cough or shortness of breath [] Cardiovascular: No additional information not addressed in HPI [] Musculoskeletal: Complains of left foot pain [] Neurologic: Denies headache or sensory changes. Complains of weakness left leg. [] All other systems were reviewed and found to be within normal limits, except as documented in this note. Allergies Allergies Allergies Coded Allergies Type Severity Reaction Last Updated Verified tramadol Allergy Intermediate RASH, NAUSEA/VOMITING 02/05/15 Yes Physical Exam Physical Exam Constitutional: Well developed, well nourished, no acute distress, non-toxic appearance. [] HENT: Normocephalic, atraumatic, bilateral external ears normal, oropharynx moist, no oral exudates, nose normal. [] Eyes: PERRLA, EOMI, conjunctiva normal, no discharge. [] Neck: Normal range of motion, no tenderness, supple. [] Cardiovascular: Regular rate and rhythm [] Lungs & Thorax: Bilateral breath sounds clear to auscultation [] Abdomen: Bowel sounds normal, soft, no tenderness. [] Skin: Warm, dry, no erythema, no rash. [] Extremities: No cyanosis, no clubbing, ROM intact. Left foot demonstrates tenderness to palpation primarily over the dorsum of the foot around the first and second MTPs. [] Neurologic: Alert and oriented X 3. Cranial nerves II through XII are grossly intact. There is mild weakness in the left lower extremity with muscle strength at a 4 out of 5. Upper extremities are 5 out of 5 and symmetric, normal sensory function. [] Current Patient Data Vital Signs Vital Signs Date Time Temp Pulse Resp B/P (MAP) Pulse Ox O2 Delivery O2 Flow Rate FiO2 01/30/18 13:47 97.8 93 20 100 Room Air EKG EKG EKG demonstrates a normal sinus rhythm with no ST segment abnormalities.[] Radiology/Procedures Radiology/Procedures [] Impressions: CT scan of the head without contrast 01/30/2018 Clinical History: Fall yesterday with left-sided weakness. Headaches and dizziness. Technique: Unenhanced, contiguous, 5 mm axial sections were obtained through the head. One or more of the following individualized dose reduction techniques were utilized for this study: 1. Automated exposure control. 2. Adjustment of the mA and/or kV according to patient size. 3. Use of iterative reconstruction technique. Findings: Comparison study is dated 08/15/2003. There is generalized parenchymal atrophy which particularly involves the right frontal and right parietal lobes. Ex vacuo dilatation of the right lateral ventricle is again seen. No acute parenchymal abnormality is seen. No extra-axial fluid collection is noted. No skull fracture is seen. Impression: No acute intracranial abnormality is seen. Electronically signed by: Mingo Rizo MD (01/30/2018 2:16 PM) [facility] [place] AND SIGNED BY: MINGO RIZO MD DATE: 01/30/18 1412 Course & Med Decision Making Course & Med Decision Making Pertinent Labs and Imaging studies reviewed. (See chart for details) [] Dragon Disclaimer Dragon Disclaimer This electronic medical record was generated, in whole or in part, using a voice recognition dictation system. Departure Departure: Impression: Primary Impression: Weakness of left lower extremity Additional Impression: Sprain of foot, left Disposition: 07 AGAINST MEDICAL ADVICE Condition: GOOD Referrals: SEAN POWELL DO (PCP) Patient Instructions: Foot Sprain, Weakness Additional Instructions: Keep appointment with Dr. Treviño for Thursday of next week. Problem Qualifiers Additional Impression: Sprain of foot, left Encounter type: initial encounter Qualified Codes: S93.602A - Unspecified sprain of left foot, initial encounter SHELBY SMITH Jr. DO Jan 30, 2018 14:50
[2018-01-30 15:00] LABS: ALBUMIN/GLOBULIN RATIO 0.9 (1.0-1.7); CALCIUM 9.7 mg/dL (8.5-10.1); CREATININE 0.8 mg/dL (0.6-1.0); GFR 91.1; POTASSIUM 3.4 mmol/L (3.5-5.1); TOTAL BILIRUBIN 0.3 mg/dL (0.2-1.0); TOTAL PROTEIN 8.7 g/dL (6.4-8.2)
[2018-01-30 15:04] VITALS: BP 159/100
[2018-01-30 15:39] LABS: AMPHETAMINE/METHAMPHETAMINE NEG (NEG); BARBITURATES NEG (NEG); BENZODIAZEPINES NEG (NEG); CANNABINOIDS NEG (NEG); CLARITY,URINE CLEAR; COCAINE NEG (NEG); COLOR,URINE YELLOW; METHADONE NEG (NEG); OPIATES NEG (NEG); PHENCYCLIDINE NEG (NEG)
[2018-01-30 15:42] LABS: BILIRUBIN,URINE NEG (NEG); GLUCOSE,URINE >=1000 mg/dL (NEG); HYALINE CASTS, URINE OCC /HPF; NITRITE,URINE NEG (NEG); RBC,URINE 0 /HPF (0-2); SQUAMOUS EPITHELIAL CELL,UR OCC /LPF; UROBILINOGEN,URINE 0.2 mg/dL (0.2 mg/dL); YEAST,URINE PRESENT /HPF
[2018-01-30 15:43] LABS: BACTERIA,URINE 0 /HPF (0-FEW)
--- NOTE | 2018-01-31 01:32 | EKG ---
[address] [address] Test Date: 2018-01-30 Test Time: 14:19:26 Pat Name: BEL WILSON Department: Room: Gender: F Case Manager Specialist: SYDNEY : 1965 Requested By: SHELBY SMITH Order Number: [id number] Reading MD: Measurements Intervals [place] Rate: 93 P: 51 MA: 144 QRS: 14 QRSD: 76 T: 52 QT: 358 QTc: 448 Interpretive Statements SINUS RHYTHM QRS(T) CONTOUR ABNORMALITY CONSIDER ANTEROLATERAL MYOCARDIAL DAMAGE POSSIBLY ABNORMAL ECG RI6.01 Unconfirmed report No previous ECG available for comparison
== END 2018-01-30 16:00 | disposition left against medical advice (07) ==
LOC: ER 13:29
DX: R53.1 Weakness (principal); S93.602A Unspecified sprain of left foot, initial encounter; R42 Dizziness and giddiness; R51 Headache; E11.9 Type 2 diabetes mellitus without complications; K21.9 Gastro-esophageal reflux disease without esophagitis; E78.00 Pure hypercholesterolemia, unspecified; I10 Essential (primary) hypertension; E03.9 Hypothyroidism, unspecified; Z87.11 Personal history of peptic ulcer disease; Z88.6 Allergy status to analgesic agent; X50.1XXA Overexertion from prolonged static or awkward postures, initial encounter; Y93.89 Activity, other specified; Y92.89 Other specified places as the place of occurrence of the external cause; Y99.8 Other external cause status
CPT/HCPCS: 36415; 70450; 71045; 73630; 80053; 80307; 81001; 83735; 84443; 85025; 93005; 99284

== ENCOUNTER → 2020-02-17 | Outpatient (CLI) | payer OTHER ==
--- NOTE | 2020-02-17 15:44 | RAD ---
EXAM: Bilateral diagnostic mammogram; bilateral breast sonogram. HISTORY: 54-year-old female presents with breast pain. The patient reports no focal palpable lump. TECHNIQUE: Full-field digital craniocaudal and mediolateral oblique views of both breasts are obtaine d for evaluation. Computer aided detection was applied. Sonographic imaging of both breasts including all 4 quadrants and the retroareolar regions was performed. COMPARISON: None. This is a baseline mammogram. BREAST PARENCHYMAL DENSITY: Level C - Heterogeneously dense. FINDINGS: There is a circumscribed nodular density within the 3:00 position of the left breast at mid depth. There are areas of asymmetry within both breasts which do not persist between projections and are likely due to benign fibroglandular tissue. There is no suspicious calcification or architectura l distortion. Sonographic imaging of the right breast demonstrates a circumscribed hypoechoic lesion at the 3:00 po sition 7 cm the nipple measuring 4 mm. This is slightly taller than wide on radial images. However, t his demonstrates a benign wire than tall oval morphology on antiradial images and demonstrates no int ernal blood flow to suggest a solid lesion component. The imaging appearance favors a benign fibroade nomatoid lesion. There is ductal ectasia bilaterally at the 9:00 and 6:00 positions. There is no susp icious axillary lymph node. Sonographic imaging of the left breast demonstrates an oval hypoechoic lesion measuring 4 mm at the 3 :00 position 11 cm from the nipple, corresponding with the location of mammographic nodularity descri bed above. The imaging appearance favors a benign complicated cyst or fibrocystic lesion. There is no additional lesion within the left breast. There is no suspicious axillary lymph node. IMPRESSION: 1. 4 mm suspected benign fibroadenomatoid lesion at the 3:00 position of the right breast 7 cm from t he nipple and 4 mm fibrocystic lesion at the 3:00 position of the left breast 11 cm from the nipple. Given the morphology of the finding at the 3:00 position of the right breast, short-term sonographic follow-up in 3 months is recommended to confirm stability. 2. BI-RADS Category 3: Probably benign finding(s). Short term follow up with a bilateral breast sonog telly in 3 months is recommended. If your mammogram demonstrates that you have dense breast tissue, which could hide abnormalities, and if you have other risk factors for breast cancer that have been identified, you might benefit from s upplemental screening tests that may be suggested by your ordering physician. Dense breast tissue, i n and of itself, is a relatively common condition. This information is not provided to cause undue c oncern, but rather to raise your awareness and to promote discussion with your physician regarding th e presence of other risk factors, in addition to dense breast tissue. A report of your mammography re sults will be sent to you and your physician. You should contact your physician if you have any ques tions or concerns regarding this report. Mammography is a sensitive method for finding small breast cancers, but it does not detect them all a nd is not a substitute for careful clinical examination. A negative mammogram does not negate a clin ically suspicious finding and should not result in delay in biopsying a clinically suspicious abnorma lity. PQRS compliance statement - Patient information was entered into a reminder system with a target due date for the next mammogram. "Our facility is accredited by the [employer] Mammography [employer]." Electronically signed by: Kamilah Beard MD (02/17/2020 3:42 PM) [id number]
== END ==
LOC: MAMMO 14:18
PROVIDERS: ATTEND Family Medicine
DX: N64.4 Mastodynia (principal); N64.89 Other specified disorders of breast
CPT/HCPCS: 76641; 77066

== ENCOUNTER → 2020-11-14 | Outpatient (CLI) | payer OTHER ==
--- NOTE | 2020-11-14 09:12 | RAD ---
EXAM: Bilateral feet, 3 views. HISTORY: Pain. COMPARISON: 01/30/2018. FINDINGS: 3 views of both feet are obtained. There is no fracture, dislocation or subluxation. There is a small left plantar spur. There is enthesopathy at the bilateral Achilles tendon insertions. IMPRESSION: No acute osseous finding. Electronically signed by: Kamilah Beard MD (11/14/2020 9:10 AM) [id number]
== END ==
LOC: RAD 08:51
PROVIDERS: ATTEND Podiatrist Foot & Ankle Surgery
DX: M77.52 Other enthesopathy of left foot and ankle (principal); M77.51 Other enthesopathy of right foot and ankle
CPT/HCPCS: 73630-50

== ENCOUNTER → 2020-11-26 | Outpatient (CLI) | payer OTHER | LOC: LAB 08:04 | PROVIDERS: ATTEND Internal Medicine Cardiovascular Disease | DX: E78.5 Hyperlipidemia, unspecified (principal) | CPT/HCPCS: 80061 ==

== ENCOUNTER 2020-12-01 03:13 | Emergency (ER) | payer OTHER ==
[~2020-12-01] VITALS: Ht 162.6 cm; Wt 69.2 kg
--- NOTE | 2020-12-01 03:18 | PHYS DOC ---
Past History Past Medical History: Diabetes, GERD, High Cholesterol, Hypertension, Hypothyroid, P.U.D (GABINO MENDEZ MD) Past Surgical History: Cholecystectomy, Hysterectomy, Tonsillectomy (GABINO MENDEZ MD) Alcohol Use: Rarely Drug Use: None (GABINO MENDEZ MD) General Adult HPI: HPI: ".. I ve been sick five days now.. I feel like I got a bowel obstruction....".. " Thats made my hypertension worse.. and my glucose go up.. " Patient is a 55 year old female who presents with above hx and complaints of generalized abdomen pain, hypertension, headache and hyperglycemia. Patient has not completed COVID vaccinations. No recent travel. No severe ill contacts. No history of bad food intake. No history of trauma. Has passed gas. Pt. follows with Dr. Engel. (GABINO MENDEZ MD) Review of Systems: Review of Systems: Constitutional: Denies fever or chills Eyes: Denies change in visual acuity HENT: Denies nasal congestion or sore throat Respiratory: Denies cough or shortness of breath Cardiovascular: Denies chest pain or edema GI: Complaints of generalized abdominal pain, nausea. Denies, vomiting, bloody stools or diarrhea : Denies dysuria Musculoskeletal: Denies back pain or joint pain Integument: Denies rash Neurologic: Denies headache, focal weakness or sensory changes Endocrine: Complains of elevated glucose level Lymphatic: Denies swollen glands Psychiatric: Denies depression or anxiety (GABINO MENDEZ MD) Family History: Family History: Noncontributory to presentation (GABINO MENDEZ MD) Current Medications: Current Meds: See nursing for home meds (AGBINO MENDEZ MD) Allergies: Allergies: Allergies Coded Allergies Type Severity Reaction Last Updated Verified tramadol Allergy Intermediate RASH, NAUSEA/VOMITING 02/05/15 Yes (GABINO MENDEZ MD) Physical Exam: PE: Constitutional: Moderate acute distress, non-toxic appearance. [] HENT: Normocephalic, atraumatic, bilateral external ears normal, oropharynx moist, no oral exudates, nose normal. [] Eyes: PERRLA, EOMI, conjunctiva normal, no discharge. [] Neck: Normal range of motion, no tenderness, supple, no stridor. [] Cardiovascular:Heart rate regular rhythm, no murmur [] Lungs & Thorax: Bilateral breath sounds equal apex auscultation [] Abdomen: Bowel sounds normal, soft, analyzed tenderness, no masses, no pulsatile masses. Mild distention. No focal areas of rebound. Old surgery scar. Patient declines rectal exam at this time. Back: No tenderness, no CVA tenderness. [] Extremities: No tenderness, no cyanosis, no clubbing, ROM intact, trace edema. [] Neurologic: Alert and oriented X 3, normal motor function, normal sensory function, no focal deficits noted. [] Psychologic: Affect anxious, judgement normal, mood normal. [] (GABINO MENDEZ MD) EKG: EKG: My interpretation EKG shows a sinus rhythm at 86 bpm. No acute morphology. Time of EKG is 0 358 [] (GABINO MENDEZ MD) Radiology/Procedures: Radiology/Procedures: [][place] [address] IMAGING REPORT Signed PATIENT: BEL WILSON ACCOUNT: [id number] : 1965 LOCATION: ER AGE: 55 SEX: F EXAM STATUS: PRE ER ORD. PHYSICIAN: GABINO MENDEZ MD REASON: pain PROCEDURE: ABDOMEN SUPINE & UPRIGHT EXAMINATION: XR ABDOMEN 2V, XR CHEST 1V CLINICAL HISTORY: Pain EXAM DATE/TIME: 12/01/2020 3:22 AM COMPARISON: None FINDINGS: Lines, Tubes, and Devices: None. Cardiomediastinal Silhouette: Normal heart size. Aortic atherosclerotic calcification. Lungs and Pleura: No evidence of focal airspace consolidation or pleural effusion. Pulmonary vasculature unremarkable. Bones and Soft Tissues: Degenerative changes in the thoracolumbar spine. Abdomen: Nonobstructive bowel gas pattern. Cholecystectomy clips. Pelvic phleboliths. IMPRESSION: No evidence of acute cardiopulmonary abnormality. Nonobstructive bowel gas pattern. Electronically signed by: Abdulaziz Miller DO (12/01/2020 4:01 AM) [facility] DI[facility] AND SIGNED BY: ABDULAZIZ MILLER DO DATE: 12/01/20 0359 CC: GABINO MENDEZ MD; TIANNA ENGEL MD ~MTH0 0 (GABINO MENDEZ MD) Radiology/Procedures: [place] [address] IMAGING REPORT Signed PATIENT: BEL WILSON ACCOUNT: [id number] : 1965 LOCATION: ER AGE: 55 SEX: F EXAM STATUS: REG ER ORD. PHYSICIAN: GABINO MENDEZ MD REASON: OMNI 240,30ML PO.OMNI 300,75ML IV.ABDOMINAL PAIN PROCEDURE: CT ABD PELV W/ORAL&IV CONTRAST EXAMINATION: CT ABDOMEN+PELVIS W CLINICAL HISTORY: Abdominal pain TECHNIQUE: CT of the abdomen and pelvis was performed using standard technique, scanning from just above the dome of the diaphragm to the symphysis pubis following administration of intravenous contrast. CT Dose Reduction Employed: One or more of the following individualized dose reduction techniques were utilized for this examination: 1. Automated exposure control 2. Adjustment of the mA and/or kV according to patient size 3. Use of iterative reconstruction technique. COMPARISON: None FINDINGS: Minimal dependent bibasilar subsegmental atelectasis. Diffuse hypoattenuation of the hepatic parenchyma, compatible with steatosis. 1.9 cm hypoenhancing lesion in the right hepatic lobe, incompletely evaluated but likely a cyst. Cholecystectomy. Pancreas, spleen, adrenal glands, and kidneys unremarkable. Minimally filled urinary bladder. Hysterectomy. No bowel dilation or definite wall thickening. Appendix within normal limits. Arterial atherosclerotic plaque without aneurysm. Multilevel thoracolumbar degenerative changes. IMPRESSION: No evidence of acute abdominopelvic abnormality. Hepatic steatosis. Electronically signed by: Abdulaziz Miller DO (12/01/2020 6:37 AM) [facility] DI[facility]ATED AND SIGNED BY: ABDULAZIZ MILLER DO DATE: 12/01/20 0632 CC: GEORGINA CRANE MD; GABINO MENDEZ MD; TIANNA ENGEL MD ~MTH0 0 (GEORGINA CRANE MD) Heart Score: C/O Chest Pain: N/A HEART Score for Chest Pain: HEART Score for Chest Pain Response (Comments) Value History Slighlty/Non-Suspicious 0 ECG Normal 0 Age >45 - < 65 1 Risk Factors 1 or 2 Risk Factors 1 Troponin < Normal Limit 0 Total 2 Risk Factors: Risk Factors: DM, Current or recent (<one month) smoker, HTN, HLP, family history of CAD, obesity. Risk Scores: Score 0 - 3: 2.5% MACE over next 6 weeks - Discharge Home Score 4 - 6: 20.3% MACE over next 6 weeks - Admit for Clinical Observation Score 7 - 10: 72.7% MACE over next 6 weeks - Early Invasive Strategies (GABINO MENDEZ MD) C/O Chest Pain: N/A (GEORGINA CRANE MD) Course & Med Decision Making: Course & Med Decision Making Pertinent Labs and Imaging studies reviewed. (See chart for details) Pt. still has not taken in contrast- 0533. Pt. encourage to continue attempts at ingesting the contrast. Pt. endorsed to Dr. Crane at shift change, she will make disposition on pt. CT still pending at shift change. Impression: 1. Abdomen Pain 2. DM = 320 glucose 3. Mild Hypokalemia 3.1 [] (GABINO MENDEZ MD) Course & Med Decision Making Accepted patient care at shift change. Pending CT of the abdomen pelvis. CT unremarkable. Patient's blood sugar both around 200 prior to discharge. No signs of DKA. Discussed patient is to follow-up with her primary care provider regarding her blood sugar levels with A1c. (GEORGINA CRANE MD) Dragon Disclaimer: Dragon Disclaimer: This electronic medical record was generated, in whole or in part, using a voice recognition dictation system. (GABINO MENDEZ MD) Departure Departure: Impression: Primary Impression: Hyperglycemia Additional Impression: Abdominal pain Disposition: 01 HOME / SELF CARE / HOMELESS Condition: STABLE Referrals: TIANNA ENGEL MD (PCP) Patient Instructions: Abdominal Pain Dragon Disclaimer This chart was dictated in whole or in part using Voice Recognition software in a busy, high-work load, and often noisy Emergency Department environment. It may contain unintended and wholly unrecognized errors or omissions. (GABINO MENDEZ MD) GABINO MENDEZ MD Dec 01, 2020 03:18 GEORGINA CRANE MD Dec 01, 2020 06:58
[2020-12-01] MEDS ORDERED: INSULIN REGULAR VIAL 100 UNIT in IV NORMAL SALINE 100ML 100 ML IV PRN (03:30)
[2020-12-01] MEDS ORDERED: IOHEXOL 240 MG/ML 50ML VIAL. ONE (03:47)
[2020-12-01] MEDS ORDERED: CONTRAST GIVEN. MC PRN (04:00)
[2020-12-01] MEDS ORDERED: IV RINGERS SOLUTION,LACTATED 1,000 ML IV SCH (04:00)
--- NOTE | 2020-12-01 04:03 | RAD ---
EXAMINATION: XR ABDOMEN 2V, XR CHEST 1V CLINICAL HISTORY: Pain EXAM DATE/TIME: 12/01/2020 3:22 AM COMPARISON: None FINDINGS: Lines, Tubes, and Devices: None. Cardiomediastinal Silhouette: Normal heart size. Aortic atherosclerotic calcification. Lungs and Pleura: No evidence of focal airspace consolidation or pleural effusion. Pulmonary vasculat ure unremarkable. Bones and Soft Tissues: Degenerative changes in the thoracolumbar spine. Abdomen: Nonobstructive bowel gas pattern. Cholecystectomy clips. Pelvic phleboliths. IMPRESSION: No evidence of acute cardiopulmonary abnormality. Nonobstructive bowel gas pattern. Electronically signed by: Abdulaziz Givens DO (12/01/2020 4:01 AM) [facility]
[2020-12-01] MEDS ORDERED: IOHEXOL 300 MG/ML 75 ML VIAL. IV ONE (04:15)
[2020-12-01 04:39] LABS: BASO # 0.1 x10^3/uL (0.0-0.2); BASO % 1 % (0-3); EOS # 0.3 x10^3/uL (0.0-0.7); EOS % 3 % (0-3); HEMOGLOBIN 13.8 g/dL (12.0-15.5); LYMPH # 2.9 x10^3/uL (1.0-4.8); LYMPH % 32 % (24-48); MEAN CORPUSCULAR HEMOGLOBIN 29 pg (25-35); MEAN CORPUSCULAR HGB CONC 34 g/dL (31-37); MEAN CORPUSCULAR VOLUME 87 fL (79-100); MONO # 0.6 x10^3/uL (0.0-1.1); MONO % 7 % (0-9); NEUT # 5.1 x10^3uL (1.8-7.7); NEUT % 57 % (31-73); PLATELET COUNT 304 x10^3/uL (140-400); RED BLOOD COUNT 4.71 x10^6/uL (3.50-5.40); RED CELL DISTRIBUTION WIDTH 14.5 % (11.5-14.5)
[2020-12-01 04:49] LABS: CALCIUM 9.8 mg/dL (8.5-10.1); GFR 69.7; POTASSIUM 3.1 mmol/L (3.5-5.1)
[2020-12-01 05:02] LABS: ALBUMIN 3.7 g/dL (3.4-5.0); DIRECT BILIRUBIN 0.1 mg/dL (0.0-0.2); MAGNESIUM 2.2 mg/dL (1.8-2.4); TOTAL BILIRUBIN 0.2 mg/dL (0.2-1.0)
[2020-12-01] MEDS ORDERED: IV NORMAL SALINE 100ML 100 ML ONE (05:06)
[2020-12-01 05:24] LABS: BGAS PH 7.42 (7.35-7.45)
[2020-12-01 05:25] LABS: BACTERIA,URINE 0 /HPF (0-FEW); BILIRUBIN,URINE NEG (NEG); CLARITY,URINE CLEAR; COLOR,URINE YELLOW; GLUCOSE,URINE >=1000 mg/dL (NEG); NITRITE,URINE NEG (NEG); RBC,URINE 0 /HPF (0-2); SQUAMOUS EPITHELIAL CELL,UR OCC /LPF; UROBILINOGEN,URINE 0.2 mg/dL (0.2 mg/dL); WBC,URINE OCC /HPF (0-4)
[2020-12-01 05:28] LABS: AMPHETAMINE/METHAMPHETAMINE NEG (NEG); BARBITURATES NEG (NEG); BENZODIAZEPINES NEG (NEG); CANNABINOIDS NEG (NEG); COCAINE NEG (NEG); METHADONE NEG (NEG); OPIATES NEG (NEG); PHENCYCLIDINE NEG (NEG)
--- NOTE | 2020-12-01 05:32 | EKG ---
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
[2020-12-01 05:37] LABS: INFLUENZA A PATIENT NEGATIVE (NEGATIVE); INFLUENZA B PATIENT NEGATIVE (NEGATIVE)
[2020-12-01 06:39] VITALS: BP 162/90
--- NOTE | 2020-12-01 06:40 | RAD ---
EXAMINATION: CT ABDOMEN+PELVIS W CLINICAL HISTORY: Abdominal pain TECHNIQUE: CT of the abdomen and pelvis was performed using standard technique, scanning from just ab ove the dome of the diaphragm to the symphysis pubis following administration of intravenous contrast . CT Dose Reduction Employed: One or more of the following individualized dose reduction techniques wer e utilized for this examination: 1. Automated exposure control 2. Adjustment of the mA and/or kV ac cording to patient size 3. Use of iterative reconstruction technique. COMPARISON: None FINDINGS: Minimal dependent bibasilar subsegmental atelectasis. Diffuse hypoattenuation of the hepatic parenchyma, compatible with steatosis. 1.9 cm hypoenhancing le refugio in the right hepatic lobe, incompletely evaluated but likely a cyst. Cholecystectomy. Pancreas, spleen, adrenal glands, and kidneys unremarkable. Minimally filled urinary bladder. Hysterectomy. No bowel dilation or definite wall thickening. Appendix within normal limits. Arterial atherosclerotic plaque without aneurysm. Multilevel thoracolumbar degenerative changes. IMPRESSION: No evidence of acute abdominopelvic abnormality. Hepatic steatosis. Electronically signed by: Abdulaziz Givens DO (12/01/2020 6:37 AM) [facility]
== END 2020-12-01 07:07 | disposition home or self-care (01) ==
LOC: ER 03:13
DX: E11.65 Type 2 diabetes mellitus with hyperglycemia (principal); K21.9 Gastro-esophageal reflux disease without esophagitis; E78.5 Hyperlipidemia, unspecified; I10 Essential (primary) hypertension; Z90.49 Acquired absence of other specified parts of digestive tract; Z90.710 Acquired absence of both cervix and uterus; Z20.822 Contact with and (suspected) exposure to COVID-19
CPT/HCPCS: 36415; 71045; 74019; 74177; 80048; 80076; 80307; 81001; 82150; 82550; 82803; 82947; 83690; 83735; 83880; 84443; 84484; 85025; 85379; 85610; 85730; 87426; 87804; 93005; 96365; 96375; 99285; C9803; J1815; J7120; Q9967; U0003

== ENCOUNTER → 2021-03-26 | Outpatient (CLI) | payer OTHER ==
[~2021-03-26] MED LIST changes: +AMLO-187 PO; +ATOR40TA59 PO; +DICY10CA3 PO; +GABA600T7 PO; +HYDR25TA PO; +INSU100C4 SQ; +INSU100V13 SQ; +LISI1TAB37 PO; -LURA40TA PO; +LURA40TA2 PO; +MAGN200T7 PO; +METO-247 PO; +PANT40TA6 PO; +SUCR1TAB PO; +TRAZ-120 PO
== END ==
LOC: LAB 13:57
PROVIDERS: ATTEND Internal Medicine Gastroenterology
DX: Z01.812 Encounter for preprocedural laboratory examination (principal); Z20.822 Contact with and (suspected) exposure to COVID-19
CPT/HCPCS: U0003

== ENCOUNTER → 2021-03-29 | Day surgery (SDC) | payer OTHER ==
[~2021-03-29] MED LIST changes: +BACTERIOSTATIC SODIUM CHLORIDE 0.9% 30 ML VIAL. IJ ONE; +IPRATRPIUM/ALBUTEROL 0.5/2.5MG 3 ML NEBU. NEB PRN; +IV RINGERS SOLUTION,LACTATED 1,000 ML IV SCH; +KETAMINE HCL IN NACL, ISO-OSM 50 MG/5 ML SYRINGE ONE; +MIDAZOLAM HCL PF 2 MG/2 ML VIAL. IV ONE; +ONDANSETRON PF 4 MG/2 ML VIAL. IV PRN; +ONDANSETRON PF 4 MG/2 ML VIAL. ONE; +PHENYLEPHRINE 10 MG/ML VIAL. IV ONE
[2021-03-29 13:32] VITALS: BP 180/105
--- NOTE | 2021-03-29 14:13 | EKG ---
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
== END | disposition home or self-care (01) ==
LOC: SURG 10:33
PROVIDERS: ATTEND Internal Medicine Gastroenterology
DX: Z12.11 Encounter for screening for malignant neoplasm of colon (principal); K64.8 Other hemorrhoids; K57.30 Diverticulosis of large intestine without perforation or abscess without bleeding; I10 Essential (primary) hypertension; K21.9 Gastro-esophageal reflux disease without esophagitis; F41.9 Anxiety disorder, unspecified; F32.9 Major depressive disorder, single episode, unspecified; M06.9 Rheumatoid arthritis, unspecified; J44.9 Chronic obstructive pulmonary disease, unspecified; E11.65 Type 2 diabetes mellitus with hyperglycemia; E03.0 Congenital hypothyroidism with diffuse goiter; F17.210 Nicotine dependence, cigarettes, uncomplicated; Z79.899 Other long term (current) drug therapy; Z88.8 Allergy status to other drugs, medicaments and biological substances; Z86.73 Personal history of transient ischemic attack (TIA), and cerebral infarction without residual deficits; Z79.4 Long term (current) use of insulin; Z83.3 Family history of diabetes mellitus; Z82.49 Family history of ischemic heart disease and other diseases of the circulatory system
CPT/HCPCS: 45378; 82947; 93005; J2405; J7120; G0105

== ENCOUNTER 2021-06-05 00:15 | Emergency (ER) | payer OTHER ==
[~2021-06-05] VITALS: Ht 162.6 cm; Wt 63.3 kg
[~2021-06-05 00:15] MED LIST changes: -BACTERIOSTATIC SODIUM CHLORIDE 0.9% 30 ML VIAL. IJ ONE; -IPRATRPIUM/ALBUTEROL 0.5/2.5MG 3 ML NEBU. NEB PRN; -IV RINGERS SOLUTION,LACTATED 1,000 ML IV SCH; -KETAMINE HCL IN NACL, ISO-OSM 50 MG/5 ML SYRINGE ONE; -MIDAZOLAM HCL PF 2 MG/2 ML VIAL. IV ONE; -ONDANSETRON PF 4 MG/2 ML VIAL. IV PRN; -ONDANSETRON PF 4 MG/2 ML VIAL. ONE; -PHENYLEPHRINE 10 MG/ML VIAL. IV ONE
--- NOTE | 2021-06-05 00:43 | PHYS DOC ---
Past History Past Medical History: Diabetes, GERD, High Cholesterol, Hypertension, Hypothyroid, P.U.D Past Surgical History: Cholecystectomy, Hysterectomy, Tonsillectomy Alcohol Use: Rarely Drug Use: None Adult General Chief Complaint Chief Complaint: SKIN RASH/ABSCESS [facility] HPI Patient is a 55-year-old female who presents with a chief complaint of dry itchy skin on her lower back. 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 States he just wants something to help with the itching. Denies any recent travels, traumas, illnesses, fevers, chest pain, shortness of breath, abdominal pain, nausea, vomiting, diarrhea. Review of Systems Review of Systems Constitutional: Denies fever or chills [] Eyes: Denies change in visual acuity, redness, or eye pain [] HENT: Denies nasal congestion or sore throat [] Respiratory: Denies cough or shortness of breath [] Cardiovascular: No additional information not addressed in HPI [] GI: Denies abdominal pain, nausea, vomiting, bloody stools or diarrhea [] : Denies dysuria or hematuria [] Musculoskeletal: Denies back pain or joint pain [] Integument: Denies rash or skin lesions [] Neurologic: Denies headache, focal weakness or sensory changes [] Endocrine: Denies polyuria or polydipsia [] All other systems were reviewed and found to be within normal limits, except as documented in this note. Allergies Allergies Allergies Coded Allergies Type Severity Reaction Last Updated Verified tramadol Allergy Intermediate RASH, NAUSEA/VOMITING 03/29/21 Yes Physical Exam Physical Exam Constitutional: Well developed, well nourished, no acute distress, non-toxic appearance. [] HENT: Normocephalic, atraumatic, bilateral external ears normal, oropharynx moist, no oral exudates, nose normal. [] Cardiovascular:Heart rate regular rhythm, no murmur [] Lungs & Thorax: Bilateral breath sounds clear to auscultation [] Skin: Warm, dry, no erythema, no rash, dry flaky skin on lower back. [] Back: No tenderness, no CVA tenderness. [] Extremities: No tenderness, no cyanosis, no clubbing, ROM intact, no edema. [] Neurologic: Alert and oriented X 3, normal motor function, normal sensory function, no focal deficits noted. [] Psychologic: Affect normal, judgement normal, mood normal. [] EKG EKG [] Radiology/Procedures Radiology/Procedures [] Heart Score C/O Chest Pain: No Risk Factors: Risk Factors: DM, Current or recent (<one month) smoker, HTN, HLP, family history of CAD, obesity. Risk Scores: Risk Factors: DM, Current or recent (<one month) smoker, HTN, HLP, family history of CAD, obesity. Course & Med Decision Making Course & Med Decision Making Patient is a 55-year-old female who presents with dry itchy skin on her lower back Vital signs nonconcerning. Physical exam noted above. Given antihistamine in the ED. Discussed symptom treatment at home with topical treatments and antihistamines. Advised to keep her upcoming appointment with her covered buckle assembler Even work note for that day at her request. Gave return precautions to the ED. Patient grateful, verbalized understanding and agreed with plan of discharge Dragon Disclaimer Dragon Disclaimer This electronic medical record was generated, in whole or in part, using a voice recognition dictation system. Departure Departure: Impression: Primary Impression: Dermatitis Disposition: HOME / SELF CARE / HOMELESS Condition: STABLE Referrals: TIANNA FELDMAN MD (PCP) Additional Instructions: Thank you for coming into the emergency department tonight and allowing us to take care of you. Please continue your antihistamine use as we discussed. Also use some topical creams such as Cetaphil, CeraVe a or Aquaphor. Please stay away from hot long showers and use cool short showers as this can make your itching worse. Please keep your upcoming appointment with your covered buckle assembler. You are given a work note for that day at your request. Please come back with new or concerning symptoms as discussed. RHETT CONNER MD Jun 05, 2021 00:43
[2021-06-05 00:50] VITALS: BP 161/98
[2021-06-05] MEDS ORDERED: diphenhydrAMINE HCL 25 MG CAPSULE PO ONE (01:00)
== END 2021-06-05 00:53 | disposition home or self-care (01) ==
LOC: ER 00:15
DX: L30.9 Dermatitis, unspecified (principal); E11.9 Type 2 diabetes mellitus without complications; K21.9 Gastro-esophageal reflux disease without esophagitis; E78.00 Pure hypercholesterolemia, unspecified; I10 Essential (primary) hypertension; E03.9 Hypothyroidism, unspecified; Z87.11 Personal history of peptic ulcer disease; Z88.6 Allergy status to analgesic agent
CPT/HCPCS: 99282; Q0163

== ENCOUNTER → 2021-06-18 | Outpatient (CLI) | payer OTHER ==
[2021-06-05 00:50] VITALS: BP 161/98
== END ==
LOC: LAB 10:25
PROVIDERS: ATTEND Family Medicine
DX: Z01.812 Encounter for preprocedural laboratory examination (principal); Z20.822 Contact with and (suspected) exposure to COVID-19; Z12.11 Encounter for screening for malignant neoplasm of colon
CPT/HCPCS: U0003